=== PATIENT | male | born 1955 | race Caucasian/White ===

== ENCOUNTER 2018-02-18 17:10 | Inpatient (IN) | payer BC ==
--- NOTE | 2018-02-18 18:56 | PDOC.FPRHP ---
- History of Present Illness Chief Complaint: abdominal pain History of Present Illness: Mr. Jerez presents as a transfer from [place] [facility] for abdominal pain and acute kidney injury. He and Dr. Montoya have been working up his abdominal pain outpatient, suspecting some sort of gall bladder pathology. He complains of lower abdominal pain that radiates to his RUQ at times, especially with fried food. The pain comes and goes with nothing making it better or worse. He does have associated N/V and alternating diarrhea and constipation. He has not had anything like this before and has no sick contacts. In the past two weeks he has stopped taking celebrex, but continues to take ibuprofen for his pain. ED Course: arrived to ED in pain, pain has now resolved. ED work up: CBC, CMP, BNP, UA, CK , CXR, CT-ab/pelvis - Allergies/Adverse Reactions Allergies Allergy/AdvReac Type Severity Reaction Status Date / Time No Known Allergies Allergy Unverified 05/21/16 21:25 - Home Medications Medication Instructions Recorded Confirmed Type Furosemide [Lasix] 40 mg PO DAILY 05/21/16 02/18/18 History Potassium Chloride 20 meq PO DAILY 05/21/16 02/18/18 History Warfarin Sodium [Coumadin] 7.5 mg PO DAILY 05/21/16 02/18/18 History Celecoxib [Celebrex] 200 mg PO DAILY 02/18/18 02/18/18 History Ibuprofen 400 mg PO DAILY PRN 02/18/18 02/18/18 History Lisinopril 10 mg PO DAILY 02/18/18 02/18/18 History - History PMHx: Factor V leiden deficiency, anemia-transfused 4 units, dependent edema PSHx: abdominal hernia repair FHx:none Social:none - Review of Systems General: reports: weight/appetite/sleep changes (intentional 20lb weight loss over 5 months). denies: fever/chills Eyes: denies: vision changes ENT: denies: nasal congestion, rhinorrhea Respiratory: denies: cough, congestion, shortness of breath Cardiovascular: reports: edema (better than baseline). denies: chest pain, palpitation Gastrointestinal: reports: nausea, vomiting, diarrhea, constipation, abdominal pain. denies: GI bleeding Genitourinary: denies: incontinence, dysuria Skin: denies: rashes, lesions Musculoskeletal: denies: pain, tenderness, stiffness, arthritis/arthralgias Neurological: denies: numbness, weakness - Vital signs BP: [135/69] HR: [94] RR: [20] Tmax: [98.5] Pox: [96]% on [RA] Wt: [154.22kg] - Physical Exam Constitutional: NAD, awake, alert and oriented HEENT: normocephalic and atraumatic, no scleral icterus, grossly normal vision, other (poor dentation) Neck: supple, trachea midline, no LAD Chest: no-tender to palpation, no lesions Heart: RRR, normal S1/S2, no murmurs/rubs/gallops, pulses present, other ( significant edema in b/l LE) Lungs: CTAB, no respiratory distress, good air movement, no rales/rhonchi Abdomen: bowel sounds present, other (guarding throughout, tenderness in lower quadrants, scar from midline hernia repair) Musculoskeletal: normal structure, normal tone, ROM grossly normal Neurological: no focal deficit, normal sensation Skin: no rash/lesions, good turgor Heme/Lymphatic: no unusual bruising or bleeding, no purpura, no petechia Psychiatric: normal mood and affect FMR H&P: Results - Labs Lab results: Creatine Kinase 51 U/L (30-200) 02/18/18 18:14 B-Natriuretic Peptide Less than 10.0 pg/mL (0-100) 02/18/18 18:14 FMR H&P: A/P - Problem List (1) Acute kidney injury Current Visit: Yes Status: Acute Code(s): N17.9 - ACUTE KIDNEY FAILURE, UNSPECIFIED (2) Cholelithiases Current Visit: Yes Status: Acute Code(s): K80.20 - CALCULUS OF GALLBLADDER W /O CHOLECYSTITIS W/O OBSTRUCTION (3) Factor 5 Leiden mutation, heterozygous Current Visit: Yes Status: Acute Code(s): D68.51 - ACTIVATED PROTEIN C RESISTANCE (4) Dependent edema Current Visit: Yes Status: Acute Code(s): R60.9 - EDEMA, UNSPECIFIED - Plan 1. SEFERINO - intrinsic renal disease : iatrogenic vs ischemic - BUN/CR elevated: 30/2.83 (ratio 10:1) - IVF: 1L LR fluid bolus, 150ml/hr LR - Renal US with doppler, mag, phos, urine ur and cr, UA with micro, uric acid, BNP - Close IandO, bladder scan - Hold lasix, NSAIDS, lisinopril - repeat CBC CMP in AM, monitor closely 2. Cholelithiasis - gall stone on CT abdomen - lab values wnl - order US gall bladder - pending results: GI consult, HIDA scan 3. Factor V leiden deficiency - continue home dose warfarin - monitor INR 4. Dependent edema - hold lasix - no open wounds at this time, continue to monitor Dispo: continue workup for cause of SEFERINO and possible gall bladder disease, repeat labs in AM FMR H&P: Upper Level - Pertinent history 62 yo WM PMH Factor V Leiden deficiency on chronic warfarin and remote history of acute blood loss anemia. Presents as transfer from [place] ER with CC of abdominal pain for 1 week that has acutely worsened. States he was recently started on lisinopril roughly 1 month ago. He states he has been taking meloxicam for several years but recently quit taking in 2 weeks ago. He also takes 2 ibuprofen in the morning for additional pain relief 3-4 days per week. ER: [place]: Labs, CXR, CT-abdomen/pelvis w/o contrast, Zosyn, NS 2L. Can: BNP and trop drawn. - Pertinent findings Vitals: WNL GEN: NAD ENT:dry mm. poor dentition CV: RRR, no murmur Lung: CTA-B, normal effort Abd: diffuse TTP in LUQ, RUQ, and RLQ, BS x4. Labs: Na 133, BUN 30, Cr 2.83 (2x baseline), INR 3.2 Imaging: CXR: cardiomegaly, hyperinflation, CT-abdomen/pelvis w/o contrast: Probably small gallstone, fatty changes of pancreas - Plan Date/Time: 02/18/181852 I, Fausto Levy MD, have evaluated this patient and agree with findings/plan as outlined by internet marketing consultant resident. Pertinent changes/additions are listed here. 1. Acute kidney injury: likely 2/2 volume depletion. Will order UA, urine urea and creatinine, uric acid, mag/phos, and repeat BMP to better describe nature of his kidney injury. Will order renal US with arterial and venous doppler. Bolus LR 1L and start at 150 mL/hr and reassess tomorrow morning. Cr has been trending up for past month. Depending on response of Cr to IV fluids, may need evaluation by nephrology inpatient vs outpatient. Strict I&O. If no urine output after 3 L fluids, will bladder scan and consider straight cath. Hold lisniopril, lasix, and NSAIDS 2. Cholelithiasis: RUQ US and consult Gen surgery tomorrow morning. NPO @ midnight. 3. Factor V Leiden deficiency: Continue warfarin, monitor INR while in hospital and adjust warfarin accordingly 4. Recent intentional weight loss 5. Dependent edema: Hold lasix. 6. Stasis dermatitis: monitor 7. HTN: hold lisinopril and lasix, PRN hydralazine available 8. Diet: NPO @ 0000, HH until then 9. PPx: warfarin 10. CODE: FULL Dispo: Inpatient, medical, >[address] Rahman.
[2018-02-18] MEDS ORDERED: Acetaminophen 325 MG TAB PO PRN (21:17)
[2018-02-18] MEDS ORDERED: Ondansetron ODT 4 MG TAB PO PRN (21:17)
[2018-02-18 21:31] VITALS: BMI 44.8
[2018-02-18] MEDS ORDERED: Lactated Ringer's 1,000 ML IV SCH (21:40)
[2018-02-18 22:24] LABS: Anion Gap 14 mmol/L (10-20); BUN (Urea Nitrogen) 29 mg/dL (8.4-25.7); Calc. Creatinine Clearance 67 mL/min (70-130); Calcium 9.1 mg/dL (7.8-10.44); Carbon Dioxide 20 mmol/L (23-31); Chloride 106 mmol/L (98-107); Estimated GFR-MDRD 27; Glucose 111 mg/dL (80-115); Magnesium 2.2 mg/dL (1.6-2.6); Phosphorus 3.6 mg/dL (2.3-4.7); Potassium 4.5 mmol/L (3.5-5.1); Sodium 135 mmol/L (136-145); Uric Acid 7.1 mg/dL (3.5-7.2)
[2018-02-18] MEDS: Lactated Ringer's 1,000 ML IV SCH (22:32)
[2018-02-18 23:04] LABS: Creatinine, Urine 196.31 mg/dL (63-166)
[2018-02-19] MEDS: Lactated Ringer's 1,000 ML IV SCH ×5 (03:24→21:17)
[2018-02-19 04:56] LABS: INR-International Normal Ratio 3.5; Prothrombin Time 34.7 SEC (12.0-14.7)
[2018-02-19 05:03] LABS: ALT (SGPT) 13 U/L (8-55); AST (SGOT) 16 U/L (5-34); Albumin 3.5 g/dL (3.4-4.8); Alkaline Phosphatase 64 U/L (40-150); Anion Gap 13 mmol/L (10-20); BUN (Urea Nitrogen) 28 mg/dL (8.4-25.7); Bilirubin, Total 0.3 mg/dL (0.2-1.2); Calc. Creatinine Clearance 86 mL/min (70-130); Carbon Dioxide 18 mmol/L (23-31); Chloride 109 mmol/L (98-107); Estimated GFR-MDRD 36; Globulin 2.9 g/dL (2.4-3.5); Glucose 95 mg/dL (80-115); Potassium 4.6 mmol/L (3.5-5.1); Protein, Total 6.4 g/dL (5.8-8.1); Sodium 135 mmol/L (136-145)
[2018-02-19 05:08] LABS: Band 2 % (5-11); Eosinophils 2 % (0-10); Hemoglobin 11.3 g/dL (14.0-18.0); Hypochromia SLIGHT = 6-15 cells (100X) (0-5/hpf); Lymphocytes 24 % (21-51); MDiff Complete? YES; Mean Corpuscular Hemoglobin 29.6 pg (27.0-31.0); Mean Corpuscular Volume 92.5 fL (78.0-98.0); Monocytes 6 % (0-10); Neutrophil 66 % (42-75); PLT Morphology Comment Appears Adequate; Platelet Count 245 thou/uL (130-400); RBC Distribution Width 13.1 % (11.5-14.5); Red Blood Cell (RBC) Count 3.81 mill/uL (4.70-6.10); White Blood Cell (WBC) Count 6.3 thou/uL (4.8-10.8)
--- NOTE | 2018-02-19 06:28 | PDOC.FM ---
- Subjective Subjective: Pt. states he did well overnight. He says his pain went from a 4 to a 2 out of ten. He states that he has not felt this good in the last 4 weeks. Pt. states that he has been urinating multiple times over night. He denies chest pain, trouble breathing, nausea, and vomiting. He did state that he has had diarrhea. We discussed the plan for him today and pt. had no questions at this time. - Objective MAR Reviewed: Yes Vital Signs & Weight: Vital Signs (12 hours) Temp Pulse Resp BP BP Pulse Ox 02/19/18 00:35 98.2 F 78 20 139/82 20 L 02/18/18 23:06 97.6 F 105 H 18 103/70 95 02/18/18 22:54 97.6 F 105 H 18 96 02/18/18 22:50 18 Weight Weight 153.995 kg Result Diagrams: 02/19/18 03:32 02/19/18 03:32 <Sukhdeep Rodriguez - Last Filed: 02/19/18 08:25> - Objective Vital Signs & Weight: Vital Signs (12 hours) Temp Pulse Resp BP Pulse Ox 02/19/18 11:50 98.3 F 74 20 117/74 94 L 02/19/18 07:54 98.2 F 87 16 145/84 H 94 L 02/19/18 00:35 98.2 F 78 20 139/82 20 L Weight Weight 153.995 kg Result Diagrams: 02/19/18 03:32 02/19/18 03:32 <Armando Miguel - Last Filed: 02/19/18 12:01> Phys Exam - Physical Examination Constitutional: NAD HEENT: PERRLA, moist MMs Neck: supple, full ROM Respiratory: no wheezing, clear to auscultation bilateral Cardiovascular: RRR, no significant murmur Gastrointestinal: positive bowel sounds Pt. has diffuse involuntary guarding Pain to palpation in LUQ and RUQ, no rebound tenderness Musculoskeletal: edema present (Unable to palpate pulses, likely 2/2 edema) Neurological: normal sensation, moves all 4 limbs Psychiatric: normal affect, A&O x 3 Skin: no rash, cap refill <2 seconds <Sukhdeep Rodriguez - Last Filed: 02/19/18 08:25> Dx/Plan (1) Acute kidney injury Code(s): N17.9 - ACUTE KIDNEY FAILURE, UNSPECIFIED Status: Acute (2) Cholelithiases Code(s): K80.20 - CALCULUS OF GALLBLADDER W/O CHOLECYSTITIS W/O OBSTRUCTION Status: Acute (3) Dependent edema Code(s): R60.9 - EDEMA, UNSPECIFIED Status: Acute (4) Factor 5 Leiden mutation, heterozygous Code(s): D68.51 - ACTIVATED PROTEIN C RESISTANCE Status: Acute (5) Anemia Code(s): D64.9 - ANEMIA, UNSPECIFIED Status: Acute - Plan Plan: This is a 62 yo male with a PMH of Factor V leiden deficiency, anemia, dependent edema SEFERINO -IVF: LR bolus, followed by 150ml/hr -Renal US, mag, phos, UA with micro, uric acid, BNP -Strict I&Os -Hold lasix and NSAIDs and lisinopril -Repeat AM labs Cholelithiasis -Consult GI -Gall badder US shows cholelithiasis, sludge, but no sign of cholecystitis Factor V leiden deficieicny Dependent edema -holding lasix for fluid resuscitation Hepatic steatosis -LFT, Bili, and albumin stable -Monitor labs <Sukhdeep Rodriguez - Last Filed: 02/19/18 08:25> Attending Addendum - Attending Addendum Date/Time: 02/19/18 1154 I personally evaluated the patient and discussed the management with Dr. Rodriguez. I agree with the History, Examination, Assessment and Plan documented above with any addition or exceptions noted below. Patient feeling improved today. Continues to have some mild abdominal pain. His renal function has improved, and imaging and labs consistent with pre-renal etiology. Continue mild fluid hydration. Will see if he tolerates diet before determining further mgmt of his cholelithiasis. If he is tolerating diet, can consider further outpatient workup. Patient at risk for gastritis and/or PUD and therefore we should explore those possibilities if he does not tolerate diet today. Awaiting final report of his imaging studies. <Armando Miguel - Last Filed: 02/19/18 12:01>
[2018-02-19 07:53] LABS: Bilirubin Negative (Negative); Blood, Urine Trace (Negative); Clarity CLEAR (Clear); Glucose, Urine (Dipstick) Negative (Negative); Leukocyte Negative (Negative); Nitrite Negative (Negative); Protein, Urine (Dipstick) Negative (Neg-Trace); Specific Gravity, Urine 1.018 (1.002-1.036); Urobilinogen 0.2 mg/dL (0.2-1.0)
[2018-02-19 07:56] LABS: Bacteria/HPF None Seen HPF (None Seen); Hyaline Casts/LPF 0-3 HYALINE CAST LPF (0-3 Hyaline); Pathc Cast-AUWi Flag 0.58 (0-2.49); RBC/HPF 0-3 HPF (0-3); Squamous Epithelial 0-3 HPF (0-3); WBC/HPF 0-3 HPF (0-3)
--- NOTE | 2018-02-19 08:47 | ULT ---
RENAL DOPPLER EVALUATION WITH SPECTRAL ANALYSIS AND COLOR FLOW EVALUATION: Date: 02/19/18 HISTORY: Renal hypertension. COMPARISON: Abdominal ultrasound on 02/18/18. FINDINGS: Kidneys were imaged on prior exam. This examination was performed as a renal artery Doppler examinati on. There is arterial flow demonstrated within the main right renal artery with peak systolic velocity of 41.1 cm/second. Peak systolic velocity in the abdominal aorta is 40.3 cm/second. Right renal artery: aorta ratio of 1.02 is obtained. Resistive index in arcuate artery on the right is 0.57, with normal being less than 0.7. Doppler evaluation, as well as color flow evaluation, were unable to detect arterial flow within the main left renal artery. However, this is likely artefactual as opposed to stenosis or occlusion. Margarita rial Doppler evaluation of the intrarenal vessels, including arcuate arteries, does demonstrate flow. However, given that there is nonvisualization of left renal artery, renal artery:aorta ratio is unab le to be obtained. Resistive index in left renal arcuate artery is 0.57. IMPRESSION: 1. Very limited examination. Given the limited evaluation of the renal arteries, CTA versus MRA is r ecommended for further evaluation of renal artery stenosis. 2. Normal resistive indices are obtained in arcuate arteries bilaterally. 3. Normal renal artery:aorta ratio on the right. POS: [facility]
[2018-02-20] MEDS: Lactated Ringer's 1,000 ML IV SCH (05:17)
--- NOTE | 2018-02-20 06:10 | PDOC.FM ---
- Subjective Subjective: Pt. states that he did well overnight and tolerated his regular diet. Pt. states that his pain is down to a 2/10 in the LLQ. No chest pain, SOB, nausea or vomiting. - Objective MAR Reviewed: Yes Vital Signs & Weight: Vital Signs (12 hours) Temp Pulse Resp BP Pulse Ox 02/19/18 20:00 98.7 F 71 18 131/84 92 L Weight Admit Weight 153.995 kg Weight 153.995 kg I&O: 02/18/18 02/19/18 02/20/18 06:59 06:59 06:59 Intake Total 4844 Balance 4844 Result Diagrams: 02/19/18 03:32 02/19/18 03:32 <Sukhdeep Rodriguez - Last Filed: 02/20/18 08:23> - Objective Vital Signs & Weight: Vital Signs (12 hours) Temp Pulse Resp BP Pulse Ox 02/20/18 08:29 97.9 F 66 16 153/77 H 92 L Weight Admit Weight 153.995 kg Weight 153.995 kg I&O: 02/19/18 02/20/18 02/21/18 06:59 06:59 06:59 Intake Total 4844 Balance 4844 Result Diagrams: 02/19/18 03:32 02/20/18 08:57 <Armando Miguel - Last Filed: 02/20/18 12:02> Phys Exam - Physical Examination Constitutional: NAD HEENT: PERRLA, moist MMs Neck: supple, full ROM Respiratory: no wheezing, clear to auscultation bilateral Cardiovascular: RRR, no significant murmur Gastrointestinal: soft, no distention, positive bowel sounds mild pain to palpation of LLQ and RUQ Musculoskeletal: pulses present Neurological: non-focal, normal sensation, moves all 4 limbs Psychiatric: normal affect, A&O x 3 Skin: no rash, normal turgor <Sukhdeep Rodriguez - Last Filed: 02/20/18 08:23> Dx/Plan (1) Acute kidney injury Code(s): N17.9 - ACUTE KIDNEY FAILURE, UNSPECIFIED Status: Acute (2) Cholelithiases Code(s): K80.20 - CALCULUS OF GALLBLADDER W/O CHOLECYSTITIS W/O OBSTRUCTION Status: Acute (3) Dependent edema Code(s): R60.9 - EDEMA, UNSPECIFIED Status: Acute (4) Factor 5 Leiden mutation, heterozygous Code(s): D68.51 - ACTIVATED PROTEIN C RESISTANCE Status: Acute (5) Anemia Code(s): D64.9 - ANEMIA, UNSPECIFIED Status: Acute - Plan Plan: This is a 62 yo male with a PMH of Factor Vleiden deficiency, anemia, dependent edema SEFERINO -IVF: LR 150ml/hr -Hold lasix, NSAIDs, lisinopril Cholelithiasis -Plan on consulting GI in outpatient setting -Gallstones and sludge w/o evidence of cholecystitis -Dr. Montoya was given courtesy call yesterday afternoon -Pt. was given trial of regular diet, if tolerated well overnight, pt. will be discharged home today Factor V leiden dificiency -Restart warfarin Dependen edema -Holding lasix for fluid resusitation Hepatic steatosis -Stable LFTs Disposition: Home today <Sukhdeep Rodriguez - Last Filed: 02/20/18 08:23> Attending Addendum - Attending Addendum Date/Time: 02/20/18 1201 I personally evaluated the patient and discussed the management with Dr. Rodriguez. I agree with the History, Examination, Assessment and Plan documented above with any addition or exceptions noted below. SEFERINO improved with hydration and all labs and imaging point to pre-renal etiology likely worsened by his NSAID use. Abdominal pain is cholelithiasis versus gastritis but he is able to tolerate a normal diet well. Will discharge on carafate and early follow up with PCP to evaluate for surgery referral for potential gallbladder removal. Stable for discharge at this time. <Armando Miguel - Last Filed: 02/20/18 12:02>
[2018-02-20 09:38] LABS: ALT (SGPT) 16 U/L (8-55); AST (SGOT) 18 U/L (5-34); Albumin 3.7 g/dL (3.4-4.8); Alkaline Phosphatase 65 U/L (40-150); Anion Gap 9 mmol/L (10-20); BUN (Urea Nitrogen) 18 mg/dL (8.4-25.7); Bilirubin, Total 0.3 mg/dL (0.2-1.2); Calc. Creatinine Clearance 132 mL/min (70-130); Calcium 9.3 mg/dL (7.8-10.44); Carbon Dioxide 27 mmol/L (23-31); Chloride 105 mmol/L (98-107); Estimated GFR-MDRD 58; Globulin 3.3 g/dL (2.4-3.5); Glucose 103 mg/dL (80-115); Potassium 4.1 mmol/L (3.5-5.1); Sodium 137 mmol/L (136-145)
[2018-02-20 12:12] VITALS: BP 112/72; TEMP 98.4
--- NOTE | 2018-02-21 04:38 | DIS-2 ---
DATE OF ADMISSION: 02/18/2018 DATE OF DISCHARGE: 02/20/2018 RESIDENT: Dr. Sukhdeep Rodriguez. ADMITTING ATTENDING: Dr. Rahman. DISCHARGE ATTENDING: Dr. Miguel. CONSULTATIONS: None. PROCEDURES: Abdominal ultrasound, gallbladder showed cholelithiasis and biliary sludge with no signs of cholecystitis also showed hepatic steatosis. Patient also had ultrasound of the bladder. The ki dneys showed possible cyst in the right renal pelvis. No evidence of hydronephrosis. Patient also g ot an abdominal pelvic Doppler, which showed a little evaluation of the left renal artery secondary t o artifact likely due to body habitus. There was outflow from the left kidney. Right kidney had goo d arterial blood flow. PRIMARY DIAGNOSES: Acute kidney injury, cholelithiasis. SECONDARY DIAGNOSIS: Factor V Leiden deficiency. DISCHARGE MEDICATIONS: Carafate 1 gram p.o. t.i.d. p.r.n. DISCONTINUED MEDICATIONS: NSAIDs and Celebrex are the only two discontinued medications. HISTORY OF PRESENT ILLNESS AND HOSPITAL COURSE: This is a 62-year-old male who presented to the ER, the night of the with abdominal pain. Patient received an ultrasound showing cholelithiasis as well as sludge. No symptoms or signs of cholecystitis. Labs also showed BUN of 29, creatinine of 2. 45. FE urea indicate prerenal causes. Patient underwent fluid resuscitation as well as n.p.o. Cur rently at this time, kidneys recovered with a creatinine of 1.25 on discharge. Patient also tolerate d regular diet on day of discharge. During this time, the warfarin was discontinued due to thought o f surgery consult and surgery. Warfarin was restarted upon day of discharge, patient was instructed to follow up with Dr. Montoya, PCP on Friday if possible. DISPOSITION: Stable. DISCHARGE INSTRUCTIONS: 1. Location: Home. 2. Diet: Regular. 3. Activity: As tolerated. 4. Follow up with Dr. Montoya, next week.
== END 2018-02-20 14:56 | disposition home or self-care (01) | DRG 683 ==
LOC: ERS 17:10 → T4-A 21:07
PROVIDERS: ADMIT Student in an Organized Health Care Education/Training Program; ATTEND Student in an Organized Health Care Education/Training Program
DX: N17.9 Acute kidney failure, unspecified (principal); D68.51 Activated protein C resistance; K80.20 Calculus of gallbladder without cholecystitis without obstruction; K76.0 Fatty (change of) liver, not elsewhere classified; N28.1 Cyst of kidney, acquired; R60.9 Edema, unspecified; D64.9 Anemia, unspecified; M19.90 Unspecified osteoarthritis, unspecified site; J42 Unspecified chronic bronchitis; I87.2 Venous insufficiency (chronic) (peripheral); I10 Essential (primary) hypertension
CPT/HCPCS: 36415; 76700; 76856; 80053; 81001; 82570; 83735; 83880; 84100; 84540; 84550; 85007; 85027; 99285; J7120

== ENCOUNTER 2018-04-23 22:04 | Inpatient (IN) | payer BC ==
[2018-04-24 00:07] LABS: PTT 246.2 SEC (22.9-36.1)
[2018-04-24 00:08] LABS: Prothrombin Time Greater than 150.0 SEC (12.0-14.7)
[2018-04-24] MEDS ORDERED: Phytonadione 5 MG in Sodium Chloride 0.9% 50 ML IVPB SCH (01:00)
[2018-04-24] MEDS ORDERED: Ondansetron ODT 4 MG TAB PO PRN ×2 (02:19→05:34)
[2018-04-24] MEDS ORDERED: HYDROcodone/Acetaminophen 10/325 mg Tablet PO PRN (02:19)
--- NOTE | 2018-04-24 02:27 | PDOC.FPRHP ---
- History of Present Illness Chief Complaint: hematuria History of Present Illness: This is a 62 yo M here for CC of hematuria. The patient has a PMH significant for Factor V Leiden, DVT, recent colon cancer s/p colectomy this month. He has been on coumadin since when he had his DVT. The patient states he has had hematuria for the past 2 days. States his urine is red tinged but denies any blood clots. Endorses mild suprapubic pain that is 2/10 and dull. The patient endorses feeling light headed intermittently over the past 2 days that is worse with walking. States he has also had intermittent cold sweats over the last 2 days. He has also had vomiting X1 that was clear. Patient denies fever, SOB, chest pain, diarrhea or LE swelling. ED Course: Vit K and FFP - Allergies/Adverse Reactions Allergies Allergy/AdvReac Type Severity Reaction Status Date / Time cortisone Allergy Mild Rash Verified 04/24/18 05:10 - Home Medications Medication Instructions Recorded Confirmed Type Furosemide [Lasix] 40 mg PO DAILY 05/21/16 04/24/18 History Warfarin Sodium [Coumadin] 7.5 mg PO DAILY 05/21/16 04/24/18 History Lisinopril 10 mg PO DAILY 02/18/18 04/24/18 History Potassium Chloride [K-Dur] 40 meq PO DAILY 03/21/18 04/24/18 History Warfarin Sodium [Coumadin] 3.75 mg PO ASDIR 04/24/18 04/24/18 History - History PMHx: colon cancer, HTN, OA, bronchitis, DVT, PVD, Factor V Leiden PSHx: colectomy (04/14), cholecystectomy, pilonidal cyst removal FHx: non contributory Social: denies alcohol or drug use, former tobacco user - quit > 10 years ago - Review of Systems General: reports: fever/chills (chills), night sweats (cold sweats). denies: weight/appetite/sleep changes Eyes: denies: eye pain, vision changes ENT: denies: nasal congestion, rhinorrhea Respiratory: reports: cough. denies: congestion, shortness of breath Cardiovascular: denies: chest pain, palpitation, edema Gastrointestinal: reports: vomiting, abdominal pain (suprapubic). denies: nausea, diarrhea, constipation Skin: denies: rashes, lesions Musculoskeletal: denies: pain, tenderness, stiffness Neurological: reports: weakness (lightheadedness). denies: syncope Psychological: denies: anxiety, depression - Vital signs BP: 112/91 HR: 117 RR: 97 Tmax: 98.8F Pox: 97% on RA Wt: 140.6kg - Physical Exam Constitutional: NAD, awake, alert and oriented HEENT: normocephalic and atraumatic, EOMI, grossly normal vision -HEENT: diminished hearing Chest: no-tender to palpation, no lesions Heart: RRR, normal S1/S2, no murmurs/rubs/gallops, pulses present Lungs: CTAB, no respiratory distress, good air movement, no wheezing Abdomen: soft, bowel sounds present -Abdomen: TTP suprapubic, midline verticle incision, wound vac in place Musculoskeletal: normal tone, ROM grossly normal Neurological: no focal deficit, CN II-XII intact Skin: good turgor, no jaundice -Skin: venous stasis changes bilaterally Psychiatric: normal mood and affect, good judgment and insight FMR H&P: A/P - Problem List (1) Hypertension Current Visit: Yes Status: Acute Code(s): I10 - ESSENTIAL (PRIMARY) HYPERTENSION (2) Coumadin toxicity Current Visit: Yes Status: Acute Code(s): T45.511A - POISONING BY ANTICOAGULANTS, ACCIDENTAL, INIT (3) Hematuria Current Visit: Yes Status: Acute Code(s): R31.9 - HEMATURIA, UNSPECIFIED (4) Adenocarcinoma Current Visit: No Status: Acute Code(s): C80.1 - MALIGNANT (PRIMARY) NEOPLASM, UNSPECIFIED (5) Factor 5 Leiden mutation, heterozygous Current Visit: No Status: Acute Code(s): D68.51 - ACTIVATED PROTEIN C RESISTANCE (6) S/P right hemicolectomy Current Visit: No Status: Acute Code(s): Z90.49 - ACQUIRED ABSENCE OF OTHER SPECIFIED PARTS OF DIGESTIVE TRACT - Plan This is a 62 yo M here for work up of hematuria found to have elevated INR. Hematuria - likely 2/2 to coumadin toxicity - CT abdomen/pelvis one month ago showed cysts on bilateral kidneys - INR: too high to detec, PT>150, PTT 246 - UA pending - Will hold coumadin and ASA - Pt given vit K and FFP in the ED - Will continue to work to get INR in th range - Will recheck INR in AM Colon Cancer s/p colectomy - aware, will monitor VS - incision clean dry and intact; will continue to monitor - Wound vac in place Factor V leiden - pt on chronic coumadin due to this condition; holding for now - See problem 1 for plan HTN - aware, will restart home meds CODE: FULL DISPO: get INR in range and reassess for hematuria Case discussed with Dr. Palm FMR H&P: Upper Level - Pertinent history 62 yo male here as a transfer from [place] for abnormal coags. He has hx of Factor V leiden and has chronically been on coumadin for previous DVT in the 90s. He had been feeling lightheaded for the past few days with associated blood in the urine. One espisode of non-bloody emesis. He went to the [place] ER where was found to have INR too high to count, PT/PTT were similarly elevated. Hemoglobin is 11.3 which is normal range for him. Denies fever, SOB, CP. Pertinent recent history also includes ex lap with right hemicolectomy and he has a wound vac in place. - Pertinent findings 155/97 HR: 121 Temp: 98.1 SO2: 97% on RA RR: 19 GEN: NAD, AOx3 CARD: tachy, regular rhythm, no m/g/r PULM: CTAB, exam limited by body habitus ABD: BSx4, wound vac in place with no signs of infection EXT: chronic skin changes to right lower leg below the mid-james; gross motor and sensation intact of lower extremities with no tenderness to palpation PT: 150 PTT: 246 INR: TNP H.3 - Plan Date/Time: 04/24/18 6985 IJimi DO, have evaluated this patient and agree with findings/plan as outlined by spring intern resident. Pertinent changes/additions are listed here. coumadin toxicity hold coumadin recheck coags in the morning patient received 5 vitK and 2 FFP in the ER monitor for bleeding hypokalemia replace monitor with AM labs s/p right hemicolectomy colon cancer Factor V Leiden HTN Morbid obesity continue home meds Attending Addendum - Attending Addendum Date/Time: 04/24/18 1026 I personally evaluated the patient and discussed the management with Dr. Sena. I agree with the History, Examination, Assessment and Plan documented above with any addition or exceptions noted below. The patient presents to [place] ER with hematuria. He was found to have supratherapeutic INR which too high for the lab to calculate. He has been given vitamin K and FFP. Will recheck INR. Pt admits that he never followed up with Dr. Montoya to have his INR checked. Pt jailynll has wound vac in place on abdomen. Will consult wound care.
[2018-04-24] MEDS ORDERED: Ondansetron HCl/PF 4 MG/2 ML Vial IVP PRN (05:34)
[2018-04-24] MEDS ORDERED: Acetaminophen 325 MG TAB PO PRN (05:34)
[2018-04-24] MEDS: Lisinopril 10 MG TAB PO SCH (08:14)
[2018-04-24] MEDS: Furosemide 40 MG TAB PO SCH (08:15)
[2018-04-24] MEDS: Potassium Chloride 20 MEQ TAB PO SCH (08:15)
[2018-04-24 11:22] LABS: Bilirubin Large (Negative); Blood, Urine Large (Negative); Clarity CLOUDY (Clear); Glucose, Urine (Dipstick) Negative (Negative); Leukocyte Small (Negative); Nitrite Negative (Negative); Protein, Urine (Dipstick) 100 mg/dL (Neg-Trace); Specific Gravity, Urine 1.024 (1.002-1.036)
[2018-04-24 11:24] LABS: Bacteria/HPF None Seen HPF (None Seen); Hyaline Casts/LPF 4-6 HYALINE CAST LPF (0-3 Hyaline); Pathc Cast-AUWi Flag 1.17 (0-2.49); RBC/HPF GREATER THAN 50-TNTC HPF (0-3); Squamous Epithelial 0-3 HPF (0-3)
[2018-04-24 11:26] LABS: Renal Epithelial None Seen HPF (0-3); Transitional Epithelial NONE SEEN HPF (0-3)
--- NOTE | 2018-04-24 13:33 | PDOC.EVN ---
Event Note - Event Note Event Note: Pt. has hematuria, suprapubic pain and a UA positive for WBC and leukocyte esterase. We are getting a urine culture and starting pt. on 1g rocephin q24hr.
[2018-04-24] MEDS: cefTRIAXone\\ROCEPHIN 1 GM in Sodium Chloride 0.9% 100 ML IVPB SCH (13:57)
[2018-04-24 15:19] VITALS: BMI 39.5
[2018-04-25 05:10] LABS: #Eosinphils 0.3 thou/uL (0.0-0.7); #Monocytes 0.5 thou/uL (0.11-0.59); #Neutrophils 5.4 thou/uL (1.40-6.50); %Basophils 0.5 % (0.0-1.0); %Lymphocytes 13.6 % (21.0-51.0); %Monocytes 7.3 % (0.0-10.0); %Neutrophils 74.7 % (42.0-75.0); Mean Corpuscular HGB CONC 31.1 g/dL (32.0-36.0); Mean Corpuscular Hemoglobin 27.8 pg (27.0-31.0); Mean Corpuscular Volume 89.4 fL (78.0-98.0); Mean Platelet Volume 7.1 fL (7.4-10.4); Platelet Count 324 thou/uL (130-400); RBC Distribution Width 15.8 % (11.5-14.5); Red Blood Cell (RBC) Count 3.59 mill/uL (4.70-6.10); White Blood Cell (WBC) Count 7.2 thou/uL (4.8-10.8)
[2018-04-25 05:26] LABS: INR-International Normal Ratio 1.3; PTT 37.6 SEC (22.9-36.1); Prothrombin Time 16.1 SEC (12.0-14.7)
[2018-04-25 05:27] LABS: Anion Gap 16 mmol/L (10-20); BUN (Urea Nitrogen) 7 mg/dL (8.4-25.7); Calc. Creatinine Clearance 137 mL/min (70-130); Carbon Dioxide 24 mmol/L (23-31); Chloride 99 mmol/L (98-107); Estimated GFR-MDRD 71; Glucose 99 mg/dL (80-115); Magnesium 1.7 mg/dL (1.6-2.6); Phosphorus 2.6 mg/dL (2.3-4.7); Potassium 3.3 mmol/L (3.5-5.1); Sodium 136 mmol/L (136-145)
--- NOTE | 2018-04-25 06:17 | PDOC.FM ---
- Subjective Subjective: Pt states he is doing well however he reports his abdomen has been hurting some. He denies N/V and had a BM yesterday. He denies any blood in his BM. He denies SOB, CP, or leg pain. - Objective MAR Reviewed: Yes Vital Signs & Weight: Vital Signs (12 hours) Temp Pulse Resp BP Pulse Ox 04/24/18 19:47 97.4 F L 88 18 125/79 95 04/24/18 19:33 95 Weight Admit Weight 136.078 kg Weight 136.078 kg I&O: 04/23/18 04/24/18 04/25/18 06:59 06:59 06:59 Intake Total 100 Balance 100 Result Diagrams: 04/25/18 04:47 04/25/18 04:47 <Sukhdeep Rodriguez - Last Filed: 04/25/18 09:56> - Objective Vital Signs & Weight: Vital Signs (12 hours) Temp Pulse Resp BP BP Pulse Ox 04/25/18 12:16 98.4 F 82 18 101/67 96 04/25/18 08:47 115/76 04/25/18 08:00 98.3 F 72 18 113/74 96 Weight Admit Weight 136.078 kg Weight 136.078 kg I&O: 04/24/18 04/25/18 04/26/18 06:59 06:59 06:59 Intake Total 580 Balance 580 Result Diagrams: 04/25/18 04:47 04/25/18 04:47 <Johana Palm - Last Filed: 04/25/18 15:39> Phys Exam - Physical Examination Constitutional: NAD HEENT: moist MMs Neck: no JVD Respiratory: no wheezing, clear to auscultation bilateral Cardiovascular: RRR, no significant murmur Gastrointestinal: soft midline wound healing well, diffuse tenderness to palpation No rebound tenderness Musculoskeletal: edema present Neurological: moves all 4 limbs Psychiatric: A&O x 3 <Sukhdeep Rodriguez - Last Filed: 04/25/18 09:56> Dx/Plan (1) Coumadin toxicity Code(s): T45.511A - POISONING BY ANTICOAGULANTS, ACCIDENTAL, INIT Status: Acute (2) Hematuria Code(s): R31.9 - HEMATURIA, UNSPECIFIED Status: Acute (3) Colonic mass Code(s): K63.9 - DISEASE OF INTESTINE, UNSPECIFIED Status: Acute (4) Factor 5 Leiden mutation, heterozygous Code(s): D68.51 - ACTIVATED PROTEIN C RESISTANCE Status: Acute - Plan Plan: This is a 62 yo mal with a PMH of factor V leiden deficiency, HTN, colon cancer s/p colectomy Hematuria -Pt. had supratherapeutic INR, secondary to coumadin toxicity, on admission with the presence of hematuria. CT adbomen a month ago shows cysts bilaterally on kidneys. INR this morning after vitamin K was 1.3. UA yesterday was positive for LE and WBCs and therefore we started pt. on Rocephin 1 gram. We are pending urine culture. We will restart pt's warfarin at 5 mg daily and attempt to contact pt's PCP. Colon cancer s/p colectomy -Aware, no signs of GI bleeding. Incision is clean and wound vac is in place. Due to pt's new abdominal pain, we are obtaining a KUB looking for dilated bowel or free air. Factor V leiden deficiency -Pt. normally on coumadin due to this condition, we are restarting pt. at lower dose than his home dose. HTN -Continue home meds Code: full Prophylaxis: none Family: none at bedside Disposition: likely home in 1-2 days <Sukhdeep Rodriguez - Last Filed: 04/25/18 09:56> (1) Hypertension Code(s): I10 - ESSENTIAL (PRIMARY) HYPERTENSION Status: Acute (2) Coumadin toxicity Code(s): T45.511A - POISONING BY ANTICOAGULANTS, ACCIDENTAL, INIT Status: Acute (3) Hematuria Code(s): R31.9 - HEMATURIA, UNSPECIFIED Status: Acute (4) Adenocarcinoma Code(s): C80.1 - MALIGNANT (PRIMARY) NEOPLASM, UNSPECIFIED Status: Acute (5) Factor 5 Leiden mutation, heterozygous Code(s): D68.51 - ACTIVATED PROTEIN C RESISTANCE Status: Acute (6) S/P right hemicolectomy Code(s): Z90.49 - ACQUIRED ABSENCE OF OTHER SPECIFIED PARTS OF DIGESTIVE TRACT Status: Acute <Johana Palm - Last Filed: 04/25/18 15:39> Attending Addendum - Attending Addendum Date/Time: 04/25/18 5963 I personally evaluated the patient and discussed the management with Dr. Rodriguez. I agree with the History, Examination, Assessment and Plan documented above with any addition or exceptions noted below. INR is now subtherapeutic. Restarting coumadin. UA indicates UTI, starting IV rocephin. <Johana Palm - Last Filed: 04/25/18 15:39>
[2018-04-25] MEDS: Furosemide 40 MG TAB PO SCH (08:44)
[2018-04-25] MEDS: Potassium Chloride 20 MEQ TAB PO SCH (08:44)
[2018-04-25] MEDS: Lisinopril 10 MG TAB PO SCH (08:47)
[2018-04-25] MEDS ORDERED: Warfarin Sodium 5 MG TAB PO SCH (09:00)
--- NOTE | 2018-04-25 09:39 | RAD ---
AP ABDOMEN: History: Recent colectomy. FINDINGS: Supine view of the abdomen obtained. The abdominal gas pattern is nonspecific. Surgical preethi seen in the right abdomen. No evidence of obstruction or dilatation seen. IMPRESSION: Unremarkable post-surgical radiograph abdomen. POS: [facility]
[2018-04-25] MEDS: cefTRIAXone\\ROCEPHIN 1 GM in Sodium Chloride 0.9% 100 ML IVPB SCH (14:30)
[2018-04-26 05:39] LABS: INR-International Normal Ratio 1.2; Prothrombin Time 15.7 SEC (12.0-14.7)
--- NOTE | 2018-04-26 06:33 | PDOC.FM ---
- Subjective Subjective: Pt. reports he is doing well this morning. Denies hematuria. He does report some suprapubic tenderness. - Objective MAR Reviewed: Yes Vital Signs & Weight: Vital Signs (12 hours) Temp Pulse Resp BP Pulse Ox 04/25/18 20:00 98.2 F 91 16 106/66 96 Weight Admit Weight 136.078 kg Weight 136.078 kg I&O: 04/24/18 04/25/18 04/26/18 06:59 06:59 06:59 Intake Total 580 1300 Balance 580 1300 Result Diagrams: 04/25/18 04:47 04/25/18 04:47 <Sukhdeep Rodriguez - Last Filed: 04/26/18 09:13> - Objective Vital Signs & Weight: Vital Signs (12 hours) Temp Pulse Resp BP BP Pulse Ox 04/26/18 11:25 98.4 F 88 18 116/76 93 L 04/26/18 08:49 115/79 04/26/18 08:00 98.5 F 84 18 115/79 92 L Weight Admit Weight 136.078 kg Weight 136.078 kg I&O: 04/25/18 04/26/18 04/27/18 06:59 06:59 06:59 Intake Total 580 1300 Balance 580 1300 Result Diagrams: 04/25/18 04:47 04/25/18 04:47 <Johana Palm - Last Filed: 04/26/18 16:23> Phys Exam - Physical Examination Constitutional: NAD HEENT: moist MMs Neck: no JVD Respiratory: no wheezing, clear to auscultation bilateral Cardiovascular: RRR, no significant murmur Gastrointestinal: soft, no distention, positive bowel sounds Suprapubic tenderness, no rebound tenderness Musculoskeletal: pulses present, edema present Neurological: normal sensation, moves all 4 limbs Psychiatric: A&O x 3 <Sukhdeep Rodriguez - Last Filed: 04/26/18 09:13> Dx/Plan (1) Coumadin toxicity Code(s): T45.511A - POISONING BY ANTICOAGULANTS, ACCIDENTAL, INIT Status: Acute (2) Hematuria Code(s): R31.9 - HEMATURIA, UNSPECIFIED Status: Acute (3) Colonic mass Code(s): K63.9 - DISEASE OF INTESTINE, UNSPECIFIED Status: Acute (4) Factor 5 Leiden mutation, heterozygous Code(s): D68.51 - ACTIVATED PROTEIN C RESISTANCE Status: Acute - Plan Plan: This is a 62 yo male with a PMH of factor V leiden deficiency, HTN, colon cancer s/p colectomy Hematuria -Pt. had supratherapeutic INR, secondary to coumadin toxicity, on admission with the presence of hematuria. CT adbomen a month ago shows cysts bilaterally on kidneys. INR this morning after vitamin K was 1.3. UA yesterday was positive for LE and WBCs and therefore we started pt. on Rocephin 1 gram. We are pending urine culture. We are going to sent pt. home on xarelto. Colon cancer s/p colectomy -Aware, no signs of GI bleeding. Incision is clean and wound vac is in place. Due to pt's new abdominal pain, we are obtaining a KUB looking for dilated bowel or free air. That KUB was negative for any acute process Factor V leiden deficiency -After discussing with PCP, we are going to start pt. on xarelto due to his poor follow up. Pt. has BCBS and should have it covered. HTN -Continue home meds Code: full Prophylaxis: none Family: none at bedside Disposition: likely home in 1-2 days <Sukhdeep Rodriguez - Last Filed: 04/26/18 09:13> (1) Hypertension Code(s): I10 - ESSENTIAL (PRIMARY) HYPERTENSION Status: Acute (2) Coumadin toxicity Code(s): T45.511A - POISONING BY ANTICOAGULANTS, ACCIDENTAL, INIT Status: Acute (3) Hematuria Code(s): R31.9 - HEMATURIA, UNSPECIFIED Status: Acute (4) Adenocarcinoma Code(s): C80.1 - MALIGNANT (PRIMARY) NEOPLASM, UNSPECIFIED Status: Acute (5) Factor 5 Leiden mutation, heterozygous Code(s): D68.51 - ACTIVATED PROTEIN C RESISTANCE Status: Acute (6) S/P right hemicolectomy Code(s): Z90.49 - ACQUIRED ABSENCE OF OTHER SPECIFIED PARTS OF DIGESTIVE TRACT Status: Acute <Johana Palm - Last Filed: 04/26/18 16:23> Attending Addendum - Attending Addendum Date/Time: 04/26/18 0622 I personally evaluated the patient and discussed the management with Dr. Rodriguez. I agree with the History, Examination, Assessment and Plan documented above with any addition or exceptions noted below. Pt denied abdominal pain for me this morning. Will transition from coumadin to xarelto. Pt will likely d/c home and f/u with Dr. Montoya. Stressed importance of following up with PCP. <Johana Palm - Last Filed: 04/26/18 16:23>
[2018-04-26] MEDS: Potassium Chloride 20 MEQ TAB PO SCH (08:49)
[2018-04-26] MEDS: Lisinopril 10 MG TAB PO SCH (08:49)
[2018-04-26] MEDS: Furosemide 40 MG TAB PO SCH (08:50)
[2018-04-26] MEDS ORDERED: Rivaroxaban 10 MG TAB PO SCH (09:00)
[2018-04-26] MEDS: cefTRIAXone\\ROCEPHIN 1 GM in Sodium Chloride 0.9% 100 ML IVPB SCH (11:18)
[2018-04-26 15:17] VITALS: BP 116/76; TEMP 98.4
--- NOTE | 2018-04-27 03:00 | DIS-2 ---
ADMITTING ATTENDING: Johana Palm M.D. DISCHARGE ATTENDING: Johana Palm M.D. RESIDENT: Sukhdeep Rodriguez D.O. CONSULTATIONS: None. PROCEDURES: One view KUB abdomen showing unremarkable surgical radiographic abdomen. PRIMARY DIAGNOSES: Urinary tract infection, warfarin supratherapeutic levels. SECONDARY DIAGNOSES: History of colon cancer, status post colectomy; hypertension; osteoarthritis; b ronchitis; deep venous thrombosis; peripheral vascular disease; history of factor V Leiden deficiency . DISCHARGE MEDICATIONS: 1. Furosemide 40 mg p.o. daily. 2. Lisinopril 10 mg p.o. daily. 3. Potassium 40 mg p.o. daily. 4. Tylenol 650 mg p.o. q.4 hours p.r.n. pain. 5. [place] 10 one p.o. q.6 hours p.r.n. pain. 6. Protonix 40 mg p.o. b.i.d. 7. Xarelto 10 mg p.o. daily. DISCONTINUED MEDICATIONS: Warfarin 7.5 mg p.o. daily, 3.75 mg p.o. Friday and . HISTORY OF PRESENT ILLNESS AND HOSPITAL COURSE: This is a 62-year-old male, who presented with a chi ef complaint of hematuria. It was found that his INR was too high to calculate. The patient was giv en vitamin K and fresh frozen plasma in the ER. We trended the INR down to 1.3 at which point we sta rted patient back on warfarin. The patient also had suprapubic tenderness. UA was inconclusive agai nst UTI. Therefore, the patient was started on Rocephin for 3-day course. During the hospital stay, I discussed with the patient and patient's case with Dr. Montoya, patient's PCP. I agreed the patie nt should be put on Xarelto at time of discharge and warfarin should be discontinued. DISPOSITION: Stable. DISCHARGE INSTRUCTIONS: 1. Location: Home. 2. Diet: Heart healthy. 3. Activity: As tolerated. 4. Followup: Follow up with Dr. Montoya this week.
== END 2018-04-26 16:33 | disposition home or self-care (01) | DRG 813 ==
LOC: ERS 22:04 → T4-B 04-24 02:16
PROVIDERS: ADMIT Family Medicine; ATTEND Family Medicine
PROC: 30233K1 Transfusion of Nonautologous Frozen Plasma into Peripheral Vein, Percutaneous Approach (ICD-10-PCS; principal; 2018-04-24)
DX: D68.32 Hemorrhagic disorder due to extrinsic circulating anticoagulants (principal); D68.51 Activated protein C resistance; N39.0 Urinary tract infection, site not specified; R31.0 Gross hematuria; T45.515A Adverse effect of anticoagulants, initial encounter; E87.6 Hypokalemia; I10 Essential (primary) hypertension; I73.9 Peripheral vascular disease, unspecified; M19.90 Unspecified osteoarthritis, unspecified site; E66.01 Morbid (severe) obesity due to excess calories; Z87.891 Personal history of nicotine dependence; Z68.39 Body mass index [BMI] 39.0-39.9, adult; Z90.49 Acquired absence of other specified parts of digestive tract; Z86.718 Personal history of other venous thrombosis and embolism; Z85.038 Personal history of other malignant neoplasm of large intestine
CPT/HCPCS: 36415; 36430; 74018; 80048; 81001; 83735; 84100; 85025; 85610; 85730; 86850; 86900; 86901; 87086; A4216; J0696; J3430; J7050; P9059

== ENCOUNTER 2018-05-08 19:25 | Inpatient (IN) | payer BC ==
--- NOTE | 2018-05-08 22:14 | RAD ---
KUB AND UPRIGHT PA CHEST: 05/08/18 HISTORY: Abdominal pain, vomiting. The bowel gas pattern shows air in both small and large bowel without signs of obstruction. Slight lo ss of some of the small bowel fold pattern and some of the bowel loops in the right lower quadrant. I f there is any suspicion of small bowel abnormality, then CT may be helpful in further assessment. No free air demonstrated. There appear to be some surgical chain type sutures in the right mid abdomen. PA CHEST: Heart size and mediastinum are within normal limits. The lungs are clear of any infiltrates. IMPRESSION: No definite acute findings. POS: [facility]
[2018-05-08] MEDS: Potassium Chloride 40 MEQ in Lactated Ringer's 1,000 ML IV SCH (23:18)
[2018-05-08 23:42] VITALS: BMI 37.1
[2018-05-09] MEDS: Potassium Chloride 40 MEQ in Lactated Ringer's 1,000 ML IV SCH (06:39)
[2018-05-09] MEDS ORDERED: hydrALAZINE 20 MG/ML VIAL SLOW IVP PRN (14:01)
[2018-05-09] MEDS ORDERED: Ondansetron ODT 4 MG TAB PO PRN (14:01)
[2018-05-09 14:36] LABS: INR-International Normal Ratio 3.3; Prothrombin Time 33.3 SEC (12.0-14.7)
[2018-05-09] MEDS: Potassium Chloride 40 MEQ in Sodium Chloride 0.45% 1,000 ML IV SCH ×2 (14:45→23:56)
--- NOTE | 2018-05-09 15:11 | HP ---
HISTORY OF PRESENT ILLNESS: Eric Jerez is a 62-year-old male patient, who lives in [place], saw Dr. Stout in the past. 03/21/2018, EGD noting a large hiatal hernia, distal esophagitis, normal duo denum, suggesting followup EGD in 8 weeks to document healing for a large ulcer, thought NSAID relate d. Subsequent, 03/25/2018, Dr. Blanchard performed a colonoscopy due to melena and anemia, finding a mas s, and subsequently, Dr. Louise, 03/27/2018, performed open right colectomy and cholecystectomy for T4 [id number] stage 3C colon cancer. RO status. Dr. Armando consulted and the patient was to see Dr. Armando o n , but felt too dizzy to see him. Patient states that since his operation, he has had probl ems with dizziness. He feels this at all times, even when in bed. He has seen [facility] without help or relief from his stopped up right ear and dizziness. He presented t [facility] Emergency Room last night with these complaints and a CT scan of his head was obtained and was normal. This morning, he had abdominal x-rays that are unremarkable. Patient was having some n ausea. Laboratories obtained and were essentially unremarkable. White count 7 and hemoglobin 12. P otassium was low at 2.5, sodium 135, BUN 12, creatinine 1.39. Patient was thought dehydrated. He wa s admitted for further evaluation. INR was not checked on this admission. ALLERGIES: None. TOBACCO: None. ALCOHOL: None. MEDICATIONS: Lisinopril, warfarin, furosemide. PAST MEDICAL HISTORY: 1. Factor V Leiden mutation, on anticoagulation. 2. Colon cancer, stage/status as noted above. He was to follow up with Oncology, Dr. Armando, but he has missed that appointment, because of these problems. 3. Hypertension. 4. Chronic dizziness. 5. Hypokalemia. PAST SURGICAL HISTORY: Recent open right colectomy, cholecystectomy, hernia repair in the past, hist ory of cholecystectomy. PHYSICAL EXAMINATION: GENERAL: Patient is in bed in no apparent distress. VITAL SIGNS: 6 feet 1, 281 pounds, 37 BMI, 97 degrees, 73, 122/67. HEAD, EARS, EYES, NOSE, AND THROAT: Unremarkable. LUNGS: Clear to auscultation. CARDIAC: Regular rate and rhythm without murmur, rub, or gallop. ABDOMEN: Soft. A well-healed midline scar. No hernias. EXTREMITIES: Unremarkable. Patient is obese. LABORATORY DATA: As noted above. ASSESSMENT AND PLAN: 1. Dizziness since his operation. He feels like he has a stopped up right ear. This has been a chr onic problem for him. He has seen multiple physicians without help. This is probably what brought h im into the hospital. We will obtain ENT consultation. 2. History of gastric ulcer, possibly related to non-steroidal antiinflammatory drugs, and with his vomiting, he complains at the time that he eats. We will ask Gastroenterology to see him. Dr. Keanu arriaza has seen him in the past as well as Dr. Blanchard. 3. Colon cancer. Oncology followup as an outpatient. 4. Dehydration. Rehydrate. 6. Hypokalemia. Replace and followup labs.
[2018-05-09] MEDS ORDERED: ISOVUE-370 76%-LOCM 1 ML ONE (15:13)
[2018-05-09] MEDS ORDERED: Iopamidol 370 76% 50 ML VIAL FS ONE (15:13)
--- NOTE | 2018-05-09 17:36 | CT ---
CT ABDOMEN AND PELVIS PERFORMED WITH INTRAVENOUS CONTRAST ENHANCEMENT: HISTORY: Postop nausea and vomiting. The patient had the gallbladder and part of the colon removed. Unable t o eat. Vomits when he eats. COMPARISON: CT examination from 03/25/2018, which was before the surgery. FINDINGS: ABDOMEN: The lung bases show some chronic change. The liver shows suggestion of some fatty change. The spleen and pancreas regions are unremarkable. The gallbladder has been removed. The right and left adrenal glands are normal in appearance. Hypodensity involving the right kidney i s statistically most likely a cyst. An exophytic hypodensity of the left kidney is also probably a c yst. There is no significant periaortic or mesenteric adenopathy. There is postop right hemicolectomy change. There is wall thickening involving the area of the ileoc olic anastomosis. There are some air outpouchings along this area, which appear to be contained and are probably just related to postop change. There is some narrowing to the anastomosis. I do not se e any signs of leak, and contrast is seen to pass through the anastomosis, without evidence of small bowel dilatation. There is no free fluid. PELVIS: Slightly numerous inguinal nodes are incidentally seen. No pelvic lymphadenopathy or mass. IMPRESSION: 1. Postoperative cholecystectomy change. 2. Postoperative right hemicolectomy with some wall thickening at the ileocolic anastomotic but no s igns for leak or obstruction, as discussed above. POS: [facility]
[2018-05-09] MEDS: Famotidine 20 MG TAB PO SCH (21:17)
[2018-05-09] MEDS: Meclizine HCl 25 MG TAB PO SCH (21:17)
[2018-05-10] MEDS: Meclizine HCl 25 MG TAB PO SCH ×3 (05:38→21:08)
[2018-05-10 06:32] LABS: INR-International Normal Ratio 3.2; Prothrombin Time 32.8 SEC (12.0-14.7)
[2018-05-10 06:40] LABS: Anion Gap 11 mmol/L (10-20); BUN (Urea Nitrogen) 8 mg/dL (8.4-25.7); Calc. Creatinine Clearance 127 mL/min (70-130); Carbon Dioxide 28 mmol/L (23-31); Chloride 99 mmol/L (98-107); Estimated GFR-MDRD 69; Glucose 98 mg/dL (80-115); Potassium 3.6 mmol/L (3.5-5.1); Sodium 134 mmol/L (136-145)
--- NOTE | 2018-05-10 07:57 | PRG ---
DATE OF SERVICE: 05/10/2018 SUBJECTIVE: Eric Jerez is doing a little better today, feels somewhat better. ENT will see him to y Friday or Friday. OBJECTIVE: VITAL SIGNS: Temperature 97.3 degrees, 69, 123/77. LUNGS: Clear to auscultation. CARDIAC: Regular rate and rhythm without murmur or gallop. ABDOMEN: Soft, nontender. LABORATORY DATA: INR 3.3 yesterday. PT 33. Patient is tolerating his diet. ordered a gastric emptying scan. He has a regular diet. Over all, the patient is doing better. His CT scan of the abdomen and pelvis performed yesterday was norm al. There is no evidence of obstruction. We will await his gastric emptying study and repeat EGD fo r gastric ulcer healing. ENT will see him for his dizziness.
[2018-05-10] MEDS: Potassium Chloride 40 MEQ in Sodium Chloride 0.45% 1,000 ML IV SCH ×2 (08:43→10:26)
[2018-05-10] MEDS: Famotidine 20 MG TAB PO SCH ×2 (08:44→21:08)
--- NOTE | 2018-05-10 15:26 | CON ---
DATE OF CONSULTATION: 05/10/2018 CHIEF COMPLAINT: I am seeing Mr. Jerez in consultation at the request of Dr. Corado for evaluation an d treatment of ear problems. HISTORY OF PRESENT ILLNESS: The patient is a 62-year-old man, who gives a 1-week history of dizzines s. When I asked him to describe his dizziness, he states that it feels like the room is spinning a l ittle bit in a clockwise or counterclockwise fashion, but it only really occurs when he is up walking around, after he has been sitting down. He denies any significant exacerbation with sitting in bed. He denies any issues with exacerbation when he lays down in bed. He does have a longstanding histo ry, 12 years or so, of hearing loss and ear problems. He has been evaluated multiple times and has n ever had any major treatment. He has never been recommended that he have hearing aids. He feels lik e his ears are really stuffy and feels like it is worse here in [facility] versus when he lived in [place]. He denies any otorrhea or otalgia. He denies other ear, nose, or throat concerns. PAST MEDICAL HISTORY: Hypertension, factor V deficiency. PAST SURGICAL HISTORY: He denies any ear, nose, and throat surgery. SOCIAL HISTORY: Former smoker user. ALLERGIES: He has allergies to CORTISONE CREAM, which causes a rash. REVIEW OF SYSTEMS: No recent fevers or chills. He denies any nasal congestion or postnasal drainage of any significance. Again, he does have the ear stuffiness, but no ear pain or drainage. He denie s sore throat or hoarseness or difficulty breathing like choking episodes. Respiratory: He denies s hortness of breath or productive cough or hemoptysis. Cardiovascular: He does have the lightheadedn ess. He denies any chest pain or palpitations. Dermatologic: He denies any nonhealing rashes or ch anging skin lesions. Neurologic: He does have the dizziness, but he denies any seizure activity, we akness, or numbness of extremities. PHYSICAL EXAMINATION: GENERAL: The patient is a healthy-appearing man in no distress that is resting comfortably in a debra r in the hospital. HEENT: Head is normocephalic. The parotid and submandibular glands are smooth. There is normal fac ial tone. External ears and nose show no scars, lesions, or masses. Eyes: Extraocular movements ar e intact. Pupils equal, round, and reactive to light. Ear canals are clear bilaterally. The tympan ic membranes are intact and clear with no evidence of effusions or retraction pockets. Rhinoscopy sh ows no purulent discharge. Septum is caudally midline. Mucosa is pink and moist. Oral cavity, lips are in good condition. He is edentulous superiorly and nearly edentulous inferiorly with some carisa s and poor teeth. The floor of mouth, oral, tongue, hard and soft palate, and buccal mucosa are all normal in appearance. Oropharynx reveals pink, moist mucosa with minimal postnasal drainage. There is no erythema or exudates. NECK: There is no mass or thyromegaly. The trachea is midline. LYMPHATIC: No cervical lymphadenopathy. NEUROLOGIC: Cranial nerves III-XII are intact. Gait is steady when he transfers from the chair to t he bed without any exacerbation of his vertigo. RESPIRATORY: Lungs are clear to auscultation bilaterally. HEART: Regular rate and rhythm. ASSESSMENT AND PLAN: 1. Ear pressure. This could be nothing more than eustachian tube dysfunction. It could also be hea ring loss that is making him feel like there is a pressure. I have recommended that he follow up as an outpatient for a formal audiogram whether it was with me or with a referral from his primary care provider to another ear, nose, and throat doctor. 2. Dizziness. This most likely is related to orthostatic hypotension. However, I cannot rule out a mild case of labyrinthitis. It does not sound like a benign positional vertigo or no other signific ant otologic etiology. I have recommended that he continue to improve with his reason for some of hi s other medical issues and follow up if the dizziness persists.
[2018-05-10] MEDS ORDERED: Phytonadione 10 MG/ML AMP SC SCH (17:30)
[2018-05-11] MEDS: Potassium Chloride 40 MEQ in Sodium Chloride 0.45% 1,000 ML IV SCH ×3 (01:21→13:51)
--- NOTE | 2018-05-11 01:36 | CON ---
DATE OF CONSULTATION: 05/10/2018 REASON FOR CONSULTATION: Nausea, vomiting, and abdominal pain. CONSULTING PHYSICIAN: Dr. Michele Corado. HISTORY OF PRESENT ILLNESS: The patient is a 62-year-old male with past medical history of factor V Leiden, hypertension, hypokalemia, chronic dizziness, and colon cancer, status post resection present ing with complaints of nausea, vomiting, and abdominal pain. The patient recently underwent colonic resection for a colon cancer diagnosed in 02/2018. He adds that since the surgery, he would have abdelrahman sea and vomiting within 2 hours after eating that would occur about once daily. When characterizing the timing of these things, he states that one meal would be completely asymptomatic, whereas the nex t meal he would have the onset of nausea approximately 20-30 minutes after he ate, which was then cul minate in vomiting within 10-15 minutes afterwards. Once he would vomit, he would have complete symp pino relief afterwards at which point usually the next meal was normal again followed by an abnormal m eal. This increased nausea and vomiting would also be accompanied by increased midepigastric abdomin al pain that would be intermittent, nonradiating, and reaches severity approximately 4-5/10. The abd ominal pain was worse with nausea and vomiting, but better after having actually vomited; however, at this time, during the course of this hospitalization, he states today that he was able to tolerate a pproximately 3 meals without increased nausea and vomiting. Currently, he denies any nausea, vomitin g, fevers, chills, abdominal pain, dysphagia, odynophagia, or GI bleeding. Of note, patient was evaluated in 02/2018 when he had an EGD on 03/21/2018 which showed a large hiata l hernia as well as a large gastric antral ulceration. REVIEW OF SYSTEMS: A ten-category review of systems was obtained with all responses negative except for the pertinent positives as listed in the HPI. PAST MEDICAL HISTORY: As per HPI. PAST SURGICAL HISTORY: Open right colectomy, cholecystectomy, hernia repair. FAMILY HISTORY: Denies any GI malignancies. SOCIAL HISTORY: Denies any tobacco, alcohol, or illicit drug use. OUTPATIENT MEDICATIONS: Lisinopril, warfarin, and furosemide. ALLERGIES: No known drug allergies. PHYSICAL EXAMINATION: VITAL SIGNS: Temperature 97.9, pulse 67, blood pressure 121/76, respiratory rate 18, satting 96% on room air. GENERAL: Patient is lying in bed in no acute distress. Alert and oriented x4. HEENT: Normocephalic, atraumatic. NECK: Supple. No scleral icterus noted. CARDIOVASCULAR: Regular rate and rhythm with no discernible murmurs, gallops, or rubs. LUNGS: Clear to auscultation bilaterally with no discernible wheezes or rales. ABDOMEN: Normoactive bowel sounds, soft, nondistended. Tenderness to palpation in midline located a t the incision site for his recent colonic resection. EXTREMITIES: No cyanosis, clubbing, or edema. LABORATORY DATA: CBC with a white blood cell count of 7.9, hemoglobin 12.5, hematocrit 40.5, platele ts 413. INR 3.3. Chemistry with a sodium of 135, potassium 2.5, chloride 94, CO2 of 23, BUN 12, cre atinine 1.39, glucose 133. AST 49, ALT 37, alkaline phosphatase 87, total bilirubin 0.7. IMAGING DATA: No current GI imaging is available for review. ASSESSMENT AND PLAN: The patient is a 62-year-old male with a past medical history of factor V Leide n, hypertension, hypokalemia, and recent diagnosis of colonic malignancy status post right hemicolect eulalia and cholecystectomy, presenting with complaints of nausea, vomiting, and intermittent abdominal p ain. Nausea and vomiting. The patient states that since having the surgery in 02/2018, he has been having increased nausea and vomiting episodes occurring within 2 hours after he eats most meals. He states that the normal pattern would follow a meal, where he will be completely asymptomatic, that would th en be followed by meal where he would have the onset of these symptoms within 2 hours after ingestion of solids or liquids. With the onset of this nausea and vomiting, the nausea would build to the poi nt where he would vomit, but then he would have complete resolution of his symptoms afterwards. At t his point in time, the pattern of his symptoms seem to be related to either gastroparesis or possible gastric outlet obstruction given the fact that his symptoms would occur within 2 hours of ingestion of food and would build to a point where he would vomit and have complete resolution of his symptoms afterwards. However, given his recent EGD in 02/2018 showing the presence of a small gastric antral ulceration. Peptic ulcer disease is still within the differential (the patient will need an EGD at s ometime in the near future). The patient is currently reluctant to proceed directly with endoscopic management at this point in time, but would rather proceed with more conservative management. RECOMMENDATIONS: 1. Would continue to monitor the patient's nausea and vomiting with aggressive antiemetic control. 2. Continue H2 kallie for possible acid reflux contributing to current symptoms. 3. I will order a gastric emptying study to confirm diagnosis of possible gastroparesis. 4. If the gastric emptying study is negative, I would then consider endoscopic evaluation for the or igin of his nausea and vomiting. We will continue to follow. Please call with any questions.
[2018-05-11] MEDS: Meclizine HCl 25 MG TAB PO SCH ×3 (05:19→21:01)
[2018-05-11 05:44] LABS: #Basophils 0.1 thou/uL (0.0-0.2); #Eosinphils 0.3 thou/uL (0.0-0.7); #Lymphocytes 1.5 thou/uL (1.20-3.40); #Monocytes 0.5 thou/uL (0.11-0.59); #Neutrophils 3.4 thou/uL (1.40-6.50); %Basophils 1.4 % (0.0-1.0); %Eosinophils 4.6 % (0.0-10.0); %Lymphocytes 25.6 % (21.0-51.0); %Monocytes 9.2 % (0.0-10.0); %Neutrophils 59.1 % (42.0-75.0); Hemoglobin 10.6 g/dL (14.0-18.0); Mean Corpuscular HGB CONC 31.1 g/dL (32.0-36.0); Mean Corpuscular Hemoglobin 28.3 pg (27.0-31.0); Mean Corpuscular Volume 90.9 fL (78.0-98.0); Mean Platelet Volume 7.2 fL (7.4-10.4); Platelet Count 321 thou/uL (130-400); RBC Distribution Width 16.9 % (11.5-14.5); Red Blood Cell (RBC) Count 3.76 mill/uL (4.70-6.10); White Blood Cell (WBC) Count 5.7 thou/uL (4.8-10.8)
[2018-05-11 06:03] LABS: ALT (SGPT) 40 U/L (8-55); AST (SGOT) 41 U/L (5-34); Albumin 3.3 g/dL (3.4-4.8); Alkaline Phosphatase 76 U/L (40-150); Anion Gap 11 mmol/L (10-20); BUN (Urea Nitrogen) 7 mg/dL (8.4-25.7); Bilirubin, Total 0.5 mg/dL (0.2-1.2); Calc. Creatinine Clearance 117 mL/min (70-130); Carbon Dioxide 28 mmol/L (23-31); Chloride 101 mmol/L (98-107); Estimated GFR-MDRD 63; Globulin 3.3 g/dL (2.4-3.5); Glucose 111 mg/dL (80-115); Potassium 3.8 mmol/L (3.5-5.1); Protein, Total 6.6 g/dL (5.8-8.1); Sodium 136 mmol/L (136-145)
[2018-05-11 06:06] LABS: INR-International Normal Ratio 1.2; Prothrombin Time 15.7 SEC (12.0-14.7)
[2018-05-11] MEDS: Famotidine 20 MG TAB PO SCH (10:12)
--- NOTE | 2018-05-11 13:20 | PRG ---
DATE OF SERVICE: 05/11/2018 Mr. Jerez had his HIDA scan, results are pending. He noted intermittently, he will have pain after ea ting or nausea and throw up, usually within 30-40 minutes. Other times he can eat without problems. He did have a very large 1.5 cm ulcer in the duodenum and when he was here when his cancer was found . It seems that he has been on a PPI and at home was on no medications for this. The ulcer was just found in 03/21/2018, 8 weeks would be the end of April. Presently he is without complaints. He s tates his bowel movements fine. PHYSICAL EXAMINATION: VITAL SIGNS: Temperature 97, pulse 60, blood pressure 103/66. ABDOMEN: Soft, nontender. There is no rebound. There is no guarding. ASSESSMENT: History of gastric ulcer. He is not on therapy for this. RECOMMENDATIONS: Stop the H2 kallie and start PPI IV.
--- NOTE | 2018-05-11 14:41 | NM ---
NUCLEAR MEDICINE GASTRIC EMPTYING STUDY: Date: 05/11/18 HISTORY: Nausea and vomiting. COMPARISON: CT abdomen and pelvis 2 days prior. FINDINGS: The exam was performed after oral administration of 2.1 mCi technetium-99m sulfur colloid. The T-1/2 emptying is 218 minutes. At 4 hours, there is only approximately 59% emptying. IMPRESSION: Delayed gastric emptying. POS: TONIE
[2018-05-11] MEDS: Pantoprazole 40 MG VIAL IVP SCH (20:58)
--- NOTE | 2018-05-11 22:52 | PRG ---
DATE OF SERVICE: 05/11/2018 SUBJECTIVE: Mr. Eric Jerez is doing well today. He still complains of dizziness. This is mostly oc curring at rest and does not seem to have orthostatic. He is tolerating his diet. He has had bowel movements. He has passed flatus. Dr. Yoel Ramesh saw him last night and the ear exam is normal. He have vestibulitis. He was encouraged to follow up with Dr. Moody' office. OBJECTIVE: VITAL SIGNS: 97.6 degrees, . LUNGS: Clear to auscultation. CARDIAC: Regular rate and rhythm without murmur, gallop. ABDOMEN: Soft, nontender. Bowel sounds present, has bowel movements. LABORATORY: White count 5.7, hemoglobin 10.6. Basic metabolic profile normal. Gastric emptying erick dy today 05/11/2018 was delayed after [address] Stout has seen him in followup and started him on a PPI IV. Plan is for future upper endoscopy. My recommendation would be that he be discharged home in the next 24 hours if he is tolerating his diet. He will follow up with Gastroenterology and ENT as an outpatient. His PT/INR normal, such laura t if he needed an upper endoscopy, he could have one tomorrow.
[2018-05-12] MEDS: Meclizine HCl 25 MG TAB PO SCH ×2 (05:01→13:21)
[2018-05-12] MEDS: Pantoprazole 40 MG VIAL IVP SCH (09:05)
--- NOTE | 2018-05-12 11:27 | PRG ---
DATE OF SERVICE: 05/12/2018 HISTORY OF PRESENT ILLNESS: Eric Jerez is doing well today. He is tolerating his diet. He is havin g bowel movements. His nausea is diminished, although occasionally occurs. He still complains of di zziness at rest and with ambulation and does not seem to be orthostatic. PHYSICAL EXAMINATION: VITAL SIGNS: Temperature 97.8 degrees, 67, 143/85. LABORATORY: No laboratories this morning. ENT has seen him and he has some degree of vestibulitis probably accounting for his dizziness and abdelrahman sea. He has been on meclizine, which has not seemed to help this much. Follow up with ENT, Dr. Yoel Moody as an outpatient might be helpful to treat his vestibulitis in the office. Dr. Stout has se en him in followup for a large gastric ulcer. The patient's anticoagulation has been held. His PT/I NR are normal. He could have an upper endoscopy this hospitalization. However, if it is too early t his may have to be done later as an outpatient. Dr. Stout has placed him on a parenteral PPI. LUNGS: Clear to auscultation. CARDIAC: Regular rate and rhythm without murmur or gallop. ABDOMEN: Soft, nontender. He has consumed all of his regular breakfast this morning. ASSESSMENT AND PLAN: 1. Abnormal gastric nuclear emptying study. Treatment for Dr. Stout, GI. 2. Duodenal ulcer. Followup endoscopy probably as an outpatient later, treatment for Dr. Stout. 3. Chronic anticoagulation, resume if Dr. Stout does not plan upper endoscopy this hospitalization. 4. Vestibulitis probably accounting for his dizziness and his nausea. Follow up with ENT as an outp atient. 5. Status post cholecystectomy and colon resection. Follow up with Dr. Louise. Dr. Louise will retur n tomorrow. The patient may be able to go home later today pending Dr. Stout evaluation at noon. I f Dr. Stout is not playing upper endoscopy then would restart his anticoagulation at his routine dos e and follow up his PT/INR as an outpatient.
[2018-05-12 13:25] VITALS: TEMP 97.9
[2018-05-12 15:53] VITALS: BP 128/80
--- NOTE | 2018-05-13 01:26 | DIS ---
DATE OF ADMISSION: 05/08/2018 DATE OF DISCHARGE: 05/12/2018 DISCHARGE DIAGNOSES: Vestibulitis; dizziness; history of large gastric ulcer on proton pump inhibito rs, follow up with Dr. Stout recommended in the next 4 weeks; chronic anticoagulation for factor V m utation; recent history six weeks ago, T4a N2b M0 stage 3, right colon cancer resection and cholecyst ectomy; dehydration; hypertension; chronic dizziness. PROCEDURES THIS HOSPITALIZATION: 1. Consultation Dr. Yoel Ramesh, ENT. No external auditory canal obstruction or foreign body. Recom mendation to follow up Dr. Ramesh's office for evaluation of chronic dizziness, vestibulitis, discharg ed home with meclizine 25 t.i.d. 2. Consult[address] with Dr. Stout, anticoagulation held. Upper endoscopy not performed. We will be p erformed later time as an outpatient. Continue proton pump inhibitors twice a day for 2 weeks and th en once a day thereafter. Prescriptions given. 3. CAT scan of abdomen and pelvis from the emergency room. Patient due for followup with Oncology f or his colon cancer, hypokalemia treated this hospitalization. HISTORY: A 62-year-old male patient was seen by Dr. Louise for right colectomy, cholecystectomy for c olon stage cancer as above. He was to see Dr. Armando oncology, but missed that visit, he felt too diz zy to see him. He has had problems. He states he is with dizziness and nausea since his colon resec tion. He was seen in the emergency room. CAT scan was obtained, was essentially normal, postoperati ve changes from right colon cholecystectomy. White count 7, hemoglobin 12, potassium low at 2.5. Pa tient was hydrated. Potassium replaced. Coumadin held. He had a history of duodenal ulcer, had not been taking PPIs. GI was consulted. We will follow up in a week or two. Upper endoscopy planned a nd the future colonoscopy planned. Continue Coumadin for factor V Leiden deficiency. Follow up with Dr. Yoel Ramesh for chronic dizziness present since his colon resection. Follow up with Dr. Dani nelson r their schedule.
== END 2018-05-12 17:20 | disposition home or self-care (01) | DRG 149 ==
LOC: ERS 19:25 → SURG B 20:30
PROVIDERS: ADMIT Specialist; ATTEND Specialist
DX: H83.09 Labyrinthitis, unspecified ear (principal); D68.51 Activated protein C resistance; C18.9 Malignant neoplasm of colon, unspecified; K25.9 Gastric ulcer, unspecified as acute or chronic, without hemorrhage or perforation; I10 Essential (primary) hypertension; E87.6 Hypokalemia; E86.0 Dehydration
CPT/HCPCS: 36415; 74022; 74177; 78264; 80048; 80053; 85025; 85610; 96365; 96366; A9541; C9113; J3430; J3480; J7120

== ENCOUNTER 2018-05-19 15:46 | Outpatient (CLI) | payer BC ==
[2018-05-19 16:55] LABS: PTT 29.5 SEC (22.9-36.1); Prothrombin Time 12.8 SEC (12.0-14.7)
[2018-05-19 17:02] LABS: #Basophils 0.1 thou/uL (0.0-0.2); #Eosinphils 0.1 thou/uL (0.0-0.7); #Lymphocytes 0.9 thou/uL (1.20-3.40); #Monocytes 0.4 thou/uL (0.11-0.59); #Neutrophils 4.1 thou/uL (1.40-6.50); %Basophils 1.4 % (0.0-1.0); %Eosinophils 2.7 % (0.0-10.0); %Lymphocytes 15.3 % (21.0-51.0); %Monocytes 7.2 % (0.0-10.0); %Neutrophils 73.4 % (42.0-75.0); Mean Corpuscular HGB CONC 30.2 g/dL (32.0-36.0); Mean Corpuscular Hemoglobin 27.8 pg (27.0-31.0); Mean Corpuscular Volume 92.1 fL (78.0-98.0); Mean Platelet Volume 7.3 fL (7.4-10.4); Platelet Count 282 thou/uL (130-400); RBC Distribution Width 17.4 % (11.5-14.5); Red Blood Cell (RBC) Count 3.97 mill/uL (4.70-6.10); White Blood Cell (WBC) Count 5.6 thou/uL (4.8-10.8)
[2018-05-19 17:12] LABS: ALT (SGPT) 12 U/L (8-55); AST (SGOT) 9 U/L (5-34); Albumin 3.5 g/dL (3.4-4.8); Alkaline Phosphatase 89 U/L (40-150); Anion Gap 11 mmol/L (10-20); BUN (Urea Nitrogen) 9 mg/dL (8.4-25.7); Bilirubin, Total 0.3 mg/dL (0.2-1.2); Calc. Creatinine Clearance 0 mL/min (70-130); Carbon Dioxide 26 mmol/L (23-31); Chloride 105 mmol/L (98-107); Estimated GFR-MDRD 71; Globulin 3.3 g/dL (2.4-3.5); Glucose 119 mg/dL (80-115); Potassium 4.1 mmol/L (3.5-5.1); Protein, Total 6.8 g/dL (5.8-8.1); Sodium 138 mmol/L (136-145)
== END 2018-05-19 15:47 | disposition home or self-care (01) ==
LOC: LABBT 15:46
PROVIDERS: ATTEND Surgery
DX: Z01.818 Encounter for other preprocedural examination (principal); C18.9 Malignant neoplasm of colon, unspecified
CPT/HCPCS: 80053; 85025; 85610; 85730; 93005; 93010

== ENCOUNTER 2018-05-20 07:46 | Day surgery (SDC) | payer BC ==
[2018-05-19 16:02] VITALS: BMI 38.2
[2018-05-20] MEDS ORDERED: CEFAZOLIN/Water 2 GM/20 ML SYRINGE ONE (08:40)
[2018-05-20] MEDS ORDERED: Bupivacaine/Epinephrine 0.25% 30 ML VIAL ONE (09:13)
[2018-05-20] MEDS ORDERED: Midazolam HCl 2 mg/2 ml Vial ONE (09:21)
[2018-05-20] MEDS ORDERED: Fentanyl 100 MCG/2 ML VIAL ONE ×2 (09:21→10:41)
[2018-05-20] MEDS ORDERED: Propofol 500 MG/50 ML VIAL ONE (09:21)
--- NOTE | 2018-05-20 11:10 | OP ---
DATE OF PROCEDURE: 05/20/2018 PREOPERATIVE DIAGNOSIS: Advanced colon cancer. SURGEON: Tez Louise M.D. PROCEDURE PERFORMED: MediPort placement. INDICATIONS: A 62-year-old male who is going to require chemotherapy for colon cancer, needed access . FINDINGS: Could not really find good backflow of venous blood on the left. I was able to get into t he right subclavian vein, placement confirmed by fluoroscopy. PROCEDURE: After informed consent was obtained, the patient was taken to the operating room and give n total intravenous anesthesia, placed in the supine position. His chest was prepped and draped in u sual fashion. Local anesthesia infiltrated subcutaneously and deep. An attempt made on the left. S everal sticks, but no good backflow of venous blood. I moved to the right, was able to get good back flow of venous blood. J-wire threaded easily. Fluoroscopy was used, showed good placement of the wi re in the superior vena cava. Skin and subcu was anesthetized with local anesthesia. Transverse antonio st wall incision was performed. The subcu divided sharply. The tunneling device used to connect the two incisions. The catheter brought through the tunnel. It was connected to the MediPort. The sys tem was flushed with heparinized saline. The MediPort was secured to the chest wall with interrupted 2-0 Prolene suture. Then the catheter cut to size. The peel-away introducer inserted over the wire . The wire was removed. The catheter inserted through the peel-away introducer and the peel-away in troducer removed. Fluoroscopy again performed showed good placement in the superior vena cava. The system accessed with a Castillo needle. Good backflow of venous blood, flushed with heparinized saline. The subcutaneous reapproximated with interrupted 3-0 Vicryl. Skin closed with interrupted 4-0 Rapi de. Dermabond applied. The patient tolerated the procedure well and was transferred to recovery in good condition. Sponge and needle count verified correct x2.
--- NOTE | 2018-05-20 12:11 | RAD ---
SINGLE VIEW OF THE CHEST: Comparison: 02-18-18 History: Mediport insertion. FINDINGS: Single view of the chest shows an enlarged but stable cardiomediastinal silhouette. There is a right subclavian Mediport with its tip in the superior vena cava. No pneumothorax is seen. IMPRESSION: Status post Mediport placement without evidence of complication. POS: TPC
[2018-05-20] MEDS ORDERED: PHENYLEPHRINE-NS 100 MCG/ML 10 ML SYRINGE ONE (14:32)
[2018-05-20] MEDS ORDERED: Ondansetron HCl/PF 4 MG/2 ML Vial ONE (14:32)
[2018-05-20] MEDS ORDERED: Metoclopramide HCl 10 MG/2 ML VIAL ONE (14:32)
[2018-05-20] MEDS ORDERED: PROPOFOL 200 MG/20 ML VIAL ONE (14:32)
== END 2018-05-20 15:15 | disposition home or self-care (01) ==
LOC: SDC 07:46
PROVIDERS: ATTEND Surgery
PROC: 02HV33Z Insertion of Infusion Device into Superior Vena Cava, Percutaneous Approach (ICD-10-PCS; principal; 2018-05-20)
DX: C18.9 Malignant neoplasm of colon, unspecified (principal); D64.9 Anemia, unspecified; Z79.01 Long term (current) use of anticoagulants; Z79.899 Other long term (current) drug therapy; Z87.891 Personal history of nicotine dependence
CPT/HCPCS: 71045; 96374; C1788; J1642; J2250; J2405; J2704; J2765; J3010

== ENCOUNTER 2018-05-22 14:10 | Inpatient (IN) | payer BC ==
--- NOTE | 2018-05-22 16:26 | ULT ---
LEFT LOWER EXTREMITY VENOUS ULTRASOUND: Comparison: None. History: Left lower extremity swelling and pain. Technique: Multiplanar grayscale and color doppler images were obtained in a left lower extremity rula ous ultrasound. Spectral analysis of the doppler waveforms were performed. FINDINGS: There is noncompression of the left popliteal vein. There is incompletely compression of the left sup erficial femoral vein. Little flow is seen in these areas. These findings are consistent with DVTs in the superficial femoral vein and popliteal vein on the left. The left common femoral vein and profun da femoral vein show no evidence of DVT and demonstrate normal compression. The venous structures dis jade to the knee show no evidence of thrombus. There is an anechoic cyst posterior to the knee measuring 5.6 x 1.8 cm in size which represents a Beatrice er's cyst. IMPRESSION: 1. DVT seen in the left superficial femoral vein and popliteal vein. 2. Alan's cyst. POS: TONIE
[2018-05-22] MEDS ORDERED: Enoxaparin Sodium 100 MG/ML SYRINGE ONE (17:34)
[2018-05-22] MEDS ORDERED: Enoxaparin Sodium 40 MG/0.4 ML SYRINGE ONE (17:34)
--- NOTE | 2018-05-22 18:09 | PDOC.FPRHP ---
- History of Present Illness Chief Complaint: left leg pain History of Present Illness: 62 yo M comes from OSH for left leg DVT. He noticed left leg onset of dull, aching pain and swelling behind his left knee this morning. Worse with walking. No redness, fever, recent trauma. He has a PMH significant for colon CA, factor 5 leiden, and recent chemo port placement. He has been on coumadin but due to port placement last on 05/20, discontinued it 5 days prior and resumed it on . ED Course: therapeutic lovenox - Allergies/Adverse Reactions Allergies Allergy/AdvReac Type Severity Reaction Status Date / Time cortisone Allergy Mild Rash Verified 05/23/18 00:57 flu vaccine Allergy Uncoded 05/23/18 00:57 - Home Medications Medication Instructions Recorded Confirmed Type Lisinopril 10 mg PO DAILY 02/18/18 05/23/18 History Warfarin Sodium 7.5 mg PO ASDIR 05/08/18 05/23/18 History Potassium Chloride 40 meq PO DAILY 05/23/18 05/23/18 History - History PMHx: History of colon CA s/p colectomy 8 weeks ago, HTN, OA, bronchitis, DVT, PVD, Factor 5 leiden deficiency PSHx: colectomy (04/14), cholecystecomy, dequervain tenosynovitis surgical procedure, pilonidal cyst removal FHx:aunt with FVL Social: denies etoh, drugs, - Review of Systems General: denies: fever/chills, weight/appetite/sleep changes Eyes: denies: vision changes ENT: denies: nasal congestion, rhinorrhea Respiratory: denies: congestion, shortness of breath Cardiovascular: denies: chest pain, palpitation Gastrointestinal: denies: nausea, vomiting, diarrhea, constipation Skin: denies: rashes, lesions, jaundice Musculoskeletal: reports: pain (pain and tenderness behind left knee), tenderness, swelling Neurological: denies: syncope, seizure Psychological: denies: anxiety, depression - Vital signs BP: [142/102] HR: [98] RR: [20] Tmax: [98.6] Pox: [94]% on [RA] Wt: [] - Physical Exam Constitutional: NAD, awake, alert and oriented HEENT: PERRLA, conjunctiva clear Neck: supple, FROM Chest: no-tender to palpation Heart: RRR, normal S1/S2, no murmurs/rubs/gallops Lungs: CTAB, no respiratory distress, good air movement, no rales/rhonchi Abdomen: soft, other (tender to palpation along midline sugical excision from laparotomy. no erythema or drainage) Musculoskeletal: normal tone -Musculoskeletal: tender to palpation behind left posterior knee at popliteal fossa. palapable cord. no erythema. BLE skin changes, chronic, likley stasis dermatitis, no signs of infection, erythema, warmth Skin: no rash/lesions, good turgor Heme/Lymphatic: no unusual bruising or bleeding, no purpura Psychiatric: normal mood and affect, good judgment and insight FMR H&P: Results - Labs Result Diagrams: 05/23/18 03:56 05/23/18 03:56 FMR H&P: A/P - Problem List (1) Dvt femoral (deep venous thrombosis) Current Visit: Yes Status: Acute Code(s): I82.419 - ACUTE EMBOLISM AND THROMBOSIS OF UNSPECIFIED FEMORAL VEIN (2) Subtherapeutic international normalized ratio (INR) Current Visit: Yes Status: Acute Code(s): R79.1 - ABNORMAL COAGULATION PROFILE (3) History of colon cancer Current Visit: Yes Status: Acute Code(s): Z85.038 - PERSONAL HISTORY OF MALIGNANT NEOPLASM OF LARGE INTESTINE (4) Anemia Current Visit: No Status: Acute Code(s): D64.9 - ANEMIA, UNSPECIFIED (5) Factor 5 Leiden mutation, heterozygous Current Visit: No Status: Acute Code(s): D68.51 - ACTIVATED PROTEIN C RESISTANCE (6) Hypertension Current Visit: No Status: Acute Code(s): I10 - ESSENTIAL (PRIMARY) HYPERTENSION (7) S/P right hemicolectomy Current Visit: No Status: Acute Code(s): Z90.49 - ACQUIRED ABSENCE OF OTHER SPECIFIED PARTS OF DIGESTIVE TRACT - Plan 62 yo M with PMH colon CA, hx of DVT, F5L deficiency here with DVT of left extremity 1. DVT 2/2 subtherapeutic INR -U/S: DVT in left superficial femoral and popliteal vv. -provoked DVT from stopping coumadin for procedure. also with hypercoaguable RF : colon CA, F5L def., obesity -will continue lovenox to coumadin bridge to achieve therapeutic INR at 2-3 -check INR in AM and anti-Xa to ensure adequate therapeutic dosing given body habitus -no SOB, non-hypoxic on RA, low concern for PE at this point -will admit to medical obs 2. Subtherapeutic INR -2/2 to discontinuing coumadin for port placement procedure -see #1 3. HTN -continue home meds 4. Factor 5 Leidein -see #1 5. OA -continue home meds 6. Colon CA s/p resection -port placed on 05/20; scheduled for outpt chemo next week 7. Normocytic anemia -could be from malignancy -non-tachycardic,asx -continue to monitor with daily CBCs dispo: <[address] zuniga FMR H&P: Upper Level - Pertinent history 62M transferred from outside ED for concern for DVT. Patient developed LLE pain and tenderness one day ago, centered behind his left knee. Pain is described as dull and achy but exquisitely tender to the touch. It is exacerbated with walking or any other flexion and extension of the LLE. Hx significant for factor V Leiden deficiency on chronic coumadin. He underwent right hemicolectomy in February of this year for stage III colon CA. He also had a port placed for chemotherapy on Friday and was off of his Coumadin for five days prior to the procedure. He resumed his Coumadin in the post-op period. ED: Lovenox 1 mg/kg - Pertinent findings Vitals: 131/81 mmHg 92 bpm 20 breaths/m 98.1F 95% on RA Gen: A&Ox3 CV: RRR; no murmurs Pulm: CTA-B Abd: distended, soft, nonTTP Extremities: severe bilateral lower extremity edema 2/2 chronic venous stasis; Skin: no erythema to left popliteal fossa but painful with palpation Venous doppler: left superficial femoral and popliteal DVT H.4 INR: 1.2 - Plan Date/Time: 05/22/181807 1. Proximal LLE DVT: popliteal vein involved, confirmed with US. Continue lovenox 1 mg/kg with [id number] level. Start warfarin and continue bridging until INR is therapeutic. Patient had a DVT 25 years ago and was diagnosed with Factor V Leiden def and started on chronic coumadin at that time. Hemodynamically stable with no concern for PE at this time. 2. HTN: continue home medications 3. Factor V Leiden: lovenox bridging to coumadin 4. Stage III Colon Ca s/p hemicolectomy and port placement: surgical site shows no s/s of infection. F/u OP for chemo 5. Normocytic anemia: likely 2/2 #4. Currently at his baseline. I, Martell Escobedo, have evaluated this patient and agree with findings/plan as outlined by materials intern resident. Pertinent changes/additions are listed here. Attending Addendum - Attending Addendum Date/Time: 05/23/1887 I personally evaluated the patient and discussed the management with Dr. Tarango/ Gergg. I agree with the History, Examination, Assessment and Plan documented above with any addition or exceptions noted below. Here for recurrent DVT with subtherapeutic INR due to need for previous procedure.Will start Lovenox, continue coumadin. Check anti-Xa level to ensure weight based dosing appropriate.
[2018-05-22] MEDS ORDERED: Ondansetron PF 4 MG/2 ML Vial IVP PRN (21:52)
[2018-05-22] MEDS ORDERED: Ondansetron ODT 4 MG TAB SL PRN (21:52)
[2018-05-22] MEDS ORDERED: Warfarin Sodium 7.5 MG TAB PO SCH (23:30)
[2018-05-23 04:56] LABS: INR-International Normal Ratio 1.2; PTT 38.5 SEC (22.9-36.1); Prothrombin Time 14.8 SEC (12.0-14.7)
[2018-05-23 05:03] LABS: #Eosinphils 0.2 thou/uL (0.0-0.7); #Lymphocytes 0.7 thou/uL (1.20-3.40); #Monocytes 0.4 thou/uL (0.11-0.59); %Basophils 0.6 % (0.0-1.0); %Eosinophils 4.9 % (0.0-10.0); %Lymphocytes 15.8 % (21.0-51.0); %Monocytes 8.6 % (0.0-10.0); %Neutrophils 70.1 % (42.0-75.0); Hemoglobin 8.9 g/dL (14.0-18.0); Mean Corpuscular HGB CONC 31.2 g/dL (32.0-36.0); Mean Corpuscular Hemoglobin 28.6 pg (27.0-31.0); Mean Corpuscular Volume 91.5 fL (78.0-98.0); Platelet Count 226 thou/uL (130-400); RBC Distribution Width 17.3 % (11.5-14.5); Red Blood Cell (RBC) Count 3.11 mill/uL (4.70-6.10); White Blood Cell (WBC) Count 4.3 thou/uL (4.8-10.8)
[2018-05-23 05:14] LABS: ALT (SGPT) Less than 7 U/L (8-55); AST (SGOT) 9 U/L (5-34); Albumin 2.8 g/dL (3.4-4.8); Alkaline Phosphatase 68 U/L (40-150); Anion Gap 11 mmol/L (10-20); BUN (Urea Nitrogen) 9 mg/dL (8.4-25.7); Bilirubin, Total 0.4 mg/dL (0.2-1.2); Calc. Creatinine Clearance 165 mL/min (70-130); Calcium 8.7 mg/dL (7.8-10.44); Carbon Dioxide 26 mmol/L (23-31); Chloride 105 mmol/L (98-107); Estimated GFR-MDRD 85; Globulin 3.2 g/dL (2.4-3.5); Glucose 114 mg/dL (80-115); Potassium 4.1 mmol/L (3.5-5.1); Sodium 138 mmol/L (136-145)
--- NOTE | 2018-05-23 05:42 | PDOC.FM ---
- Subjective Subjective: Doing well. Reports increased pain in left leg. Denies chest pain, shortness of breath. No other concerns. - Objective MAR Reviewed: Yes Vital Signs & Weight: Vital Signs (12 hours) Temp Pulse Resp BP Pulse Ox 05/23/18 03:55 96 18 119/51 L 93 L 05/22/18 21:37 98.1 F 104 H 18 145/73 H 94 L Weight Weight 139.117 kg Result Diagrams: 05/23/18 03:56 05/23/18 03:56 <Michaela Guillen - Last Filed: 05/23/18 10:33> - Objective Vital Signs & Weight: Vital Signs (12 hours) Temp Pulse Resp BP Pulse Ox 05/23/18 07:12 98.6 F 96 16 108/55 L 93 L 05/23/18 03:55 96 18 119/51 L 93 L Weight Weight 139.117 kg Result Diagrams: 05/23/18 03:56 05/23/18 03:56 <Armando Miguel - Last Filed: 05/23/18 10:42> Phys Exam - Physical Examination Constitutional: NAD Neck: supple Respiratory: no wheezing, clear to auscultation bilateral Cardiovascular: RRR, no significant murmur Gastrointestinal: soft, non-tender, positive bowel sounds Musculoskeletal: pulses present Psychiatric: normal affect, A&O x 3 Skin: cap refill <2 seconds <Michaela Guillen - Last Filed: 05/23/18 10:33> Dx/Plan (1) Dvt femoral (deep venous thrombosis) Code(s): I82.419 - ACUTE EMBOLISM AND THROMBOSIS OF UNSPECIFIED FEMORAL VEIN Status: Acute (2) History of colon cancer Code(s): Z85.038 - PERSONAL HISTORY OF MALIGNANT NEOPLASM OF LARGE INTESTINE Status: Acute (3) Subtherapeutic international normalized ratio (INR) Code(s): R79.1 - ABNORMAL COAGULATION PROFILE Status: Acute (4) Acute kidney injury Code(s): N17.9 - ACUTE KIDNEY FAILURE, UNSPECIFIED Status: Acute (5) Adenocarcinoma Code(s): C80.1 - MALIGNANT (PRIMARY) NEOPLASM, UNSPECIFIED Status: Acute (6) Anemia Code(s): D64.9 - ANEMIA, UNSPECIFIED Status: Acute - Plan Plan: DVT 2/2 subtherapeutic INR - U/S: DVT in left superficial femoral & popliteal vv. - Provoked DVT from stopping coumadin for procedure. - Hypercoaguable in setting of colon CA, F5L def., obesity - Continue lovenox to coumadin bridge to achieve therapeutic INR at 2-3 - INR 1.2, Anti-Xa < 0.1 - Therapeutic range for lovenox is 0.6-1, although lab was drawn 14hrs after initial dose (dose given at 1330 05/22) and it is recommended to draw 4 hrs after dose. Will recheck level at 1200 which is 4hrs after his 140mg dose this AM at 800 and adjust accordingly. Subtherapeutic INR - 2/2 to discontinuing Coumadin for port placement procedure - Will manage as above HTN - Continue home meds Factor 5 Leiden def/mut OA - Continue home meds Colon CA s/p resection - Port placed on 05/20 for chemo - Scheduled for outpt chemo next week Normocytic anemia - Likely 2/2 to malignancy - Continue to monitor with daily CBCs Code Status: DVT ppx: Therapeutic lovenox/warfarin bridge <Michaela Guillen - Last Filed: 05/23/18 10:33> (1) Dvt femoral (deep venous thrombosis) Code(s): I82.419 - ACUTE EMBOLISM AND THROMBOSIS OF UNSPECIFIED FEMORAL VEIN Status: Acute (2) Subtherapeutic international normalized ratio (INR) Code(s): R79.1 - ABNORMAL COAGULATION PROFILE Status: Acute (3) History of colon cancer Code(s): Z85.038 - PERSONAL HISTORY OF MALIGNANT NEOPLASM OF LARGE INTESTINE Status: Acute (4) Anemia Code(s): D64.9 - ANEMIA, UNSPECIFIED Status: Acute (5) Factor 5 Leiden mutation, heterozygous Code(s): D68.51 - ACTIVATED PROTEIN C RESISTANCE Status: Acute (6) Hypertension Code(s): I10 - ESSENTIAL (PRIMARY) HYPERTENSION Status: Acute (7) S/P right hemicolectomy Code(s): Z90.49 - ACQUIRED ABSENCE OF OTHER SPECIFIED PARTS OF DIGESTIVE TRACT Status: Acute <Armando Miguel - Last Filed: 05/23/18 10:42> Attending Addendum - Attending Addendum Date/Time: 05/23/18 1042 I personally evaluated the patient and discussed the management with Dr. Guillen. I agree with the History, Examination, Assessment and Plan documented above with any addition or exceptions noted below. Adjust Lovenox dosing if necessary based on repeat Xa levels. Continue bridge back to therapeutic warfarin. <Armando Miguel - Last Filed: 05/23/18 10:42>
[2018-05-23] MEDS: Acetaminophen 325 MG TAB PO PRN ×3 (07:07→17:09)
[2018-05-23 07:18] LABS: Heparin Anti 10a (LMWH) Less than 0.1 IU/mL
[2018-05-23] MEDS: Enoxaparin Sodium 100 MG/ML SYRINGE SC SCH ×2 (08:30→21:37)
[2018-05-23] MEDS: Lisinopril 10 MG TAB PO SCH (08:30)
[2018-05-23] MEDS: Enoxaparin Sodium 40 MG/0.4 ML SYRINGE SC SCH ×2 (08:30→21:38)
[2018-05-23] MEDS: Warfarin Sodium 7.5 MG TAB PO SCH (17:09)
[2018-05-24] MEDS: Acetaminophen 325 MG TAB PO PRN ×2 (03:39→13:52)
[2018-05-24 05:52] LABS: #Eosinphils 0.2 thou/uL (0.0-0.7); #Lymphocytes 0.8 thou/uL (1.20-3.40); #Monocytes 0.3 thou/uL (0.11-0.59); #Neutrophils 2.6 thou/uL (1.40-6.50); %Basophils 0.5 % (0.0-1.0); %Eosinophils 5.2 % (0.0-10.0); %Lymphocytes 21.1 % (21.0-51.0); %Monocytes 7.1 % (0.0-10.0); %Neutrophils 66.1 % (42.0-75.0); Hemoglobin 8.9 g/dL (14.0-18.0); Mean Corpuscular HGB CONC 30.6 g/dL (32.0-36.0); Mean Corpuscular Volume 91.3 fL (78.0-98.0); Mean Platelet Volume 6.8 fL (7.4-10.4); Platelet Count 254 thou/uL (130-400); RBC Distribution Width 17.3 % (11.5-14.5); Red Blood Cell (RBC) Count 3.18 mill/uL (4.70-6.10); White Blood Cell (WBC) Count 3.9 thou/uL (4.8-10.8)
--- NOTE | 2018-05-24 06:08 | PDOC.FM ---
- Subjective Subjective: Doing well this morning. Reports improvement in pain. Pain controlled with Tylenol. He is not pleased with the heart healthy diet. Will transition to low Vit K diet, he was agreeable to this. He has an appt tomorrow for evaluation of his port that will be used for chemotherapy. His first treatment is this Friday. He is concerned that he will not be able to make these appts since he will be in the hospital. He is going to call to see if they will come see him while he is in the hospital. We will try to contact them tomorrow as well. - Objective MAR Reviewed: Yes Vital Signs & Weight: Vital Signs (12 hours) Temp Pulse Resp BP BP Pulse Ox 05/24/18 03:39 93 18 116/59 L 93 L 05/23/18 23:34 98.7 F 85 24 H 137/77 93 L 05/23/18 19:51 98.1 F 77 21 H 116/60 95 Weight Weight 139.117 kg I&O: 05/22/18 05/23/18 05/24/18 06:59 06:59 06:59 Intake Total 900 Balance 900 Result Diagrams: 05/24/18 05:24 05/24/18 05:24 <Michaela Guillen - Last Filed: 05/24/18 07:55> - Objective Vital Signs & Weight: Vital Signs (12 hours) Temp Pulse Resp BP BP Pulse Ox 05/24/18 08:31 136/84 05/24/18 07:05 98.2 F 87 20 136/84 93 L 05/24/18 03:39 93 18 116/59 L 93 L 05/23/18 23:34 98.7 F 85 24 H 137/77 93 L Weight Weight 139.117 kg I&O: 05/23/18 05/24/18 05/25/18 06:59 06:59 06:59 Intake Total 900 Balance 900 Result Diagrams: 05/24/18 05:24 05/24/18 05:24 <Armando Miguel - Last Filed: 05/24/18 10:06> Phys Exam - Physical Examination Constitutional: NAD Neck: supple Respiratory: no wheezing, clear to auscultation bilateral Cardiovascular: RRR, no significant murmur Gastrointestinal: soft, non-tender, positive bowel sounds Musculoskeletal: edema present Neurological: moves all 4 limbs Psychiatric: normal affect, A&O x 3 <Guillen,Michaela - Last Filed: 05/24/18 07:55> Dx/Plan (1) Dvt femoral (deep venous thrombosis) Code(s): I82.419 - ACUTE EMBOLISM AND THROMBOSIS OF UNSPECIFIED FEMORAL VEIN Status: Acute (2) History of colon cancer Code(s): Z85.038 - PERSONAL HISTORY OF MALIGNANT NEOPLASM OF LARGE INTESTINE Status: Acute (3) Subtherapeutic international normalized ratio (INR) Code(s): R79.1 - ABNORMAL COAGULATION PROFILE Status: Acute (4) Acute kidney injury Code(s): N17.9 - ACUTE KIDNEY FAILURE, UNSPECIFIED Status: Acute (5) Adenocarcinoma Code(s): C80.1 - MALIGNANT (PRIMARY) NEOPLASM, UNSPECIFIED Status: Acute (6) Anemia Code(s): D64.9 - ANEMIA, UNSPECIFIED Status: Acute - Plan Plan: DVT 2/2 subtherapeutic INR - U/S: DVT in left superficial femoral & popliteal vv. - Provoked DVT from stopping coumadin for procedure. - Hypercoaguable in setting of colon CA, F5L def., obesity - Continue lovenox to coumadin bridge to achieve therapeutic INR at 2-3 - INR 1.3, Anti-Xa .39 yesterday 4hr after morning dose, 0.01 under therapeutic range. continue to monitor 4hr post injection daily - Will place pt on low Vit K diet Subtherapeutic INR - 2/2 to discontinuing Coumadin for port placement procedure - Will manage as above HTN - Continue home meds Factor 5 Leiden def/mut OA - Continue home meds Colon CA s/p resection - Port placed on 05/20 for chemo - Scheduled for outpt chemo Friday - Will need to contact pts clinic to arrange for them to see him in the hospital Fri & Normocytic anemia - Likely 2/2 to malignancy - Continue to monitor with daily CBCs Code Status: DVT ppx: Therapeutic lovenox/warfarin bridge <GuillenMichaela - Last Filed: 05/24/18 07:55> (1) Dvt femoral (deep venous thrombosis) Code(s): I82.419 - ACUTE EMBOLISM AND THROMBOSIS OF UNSPECIFIED FEMORAL VEIN Status: Acute (2) Subtherapeutic international normalized ratio (INR) Code(s): R79.1 - ABNORMAL COAGULATION PROFILE Status: Acute (3) History of colon cancer Code(s): Z85.038 - PERSONAL HISTORY OF MALIGNANT NEOPLASM OF LARGE INTESTINE Status: Acute (4) Anemia Code(s): D64.9 - ANEMIA, UNSPECIFIED Status: Acute (5) Factor 5 Leiden mutation, heterozygous Code(s): D68.51 - ACTIVATED PROTEIN C RESISTANCE Status: Acute (6) Hypertension Code(s): I10 - ESSENTIAL (PRIMARY) HYPERTENSION Status: Acute (7) S/P right hemicolectomy Code(s): Z90.49 - ACQUIRED ABSENCE OF OTHER SPECIFIED PARTS OF DIGESTIVE TRACT Status: Acute <Armando Miguel - Last Filed: 05/24/18 10:06> Attending Addendum - Attending Addendum Date/Time: 05/24/18 1005 I personally evaluated the patient and discussed the management with Dr. Guillen. I agree with the History, Examination, Assessment and Plan documented above with any addition or exceptions noted below. Patient stable. INR subtherapuetic. Anti-Xa levels appropriate. Continue bridge to therapeutic coumadin. Will hold on extraneous lab draws unless clinical course changes. <Armando Miguel - Last Filed: 05/24/18 10:06>
[2018-05-24 06:16] LABS: ALT (SGPT) Less than 7 U/L (8-55); AST (SGOT) 10 U/L (5-34); Albumin 2.8 g/dL (3.4-4.8); Alkaline Phosphatase 67 U/L (40-150); Anion Gap 9 mmol/L (10-20); BUN (Urea Nitrogen) 9 mg/dL (8.4-25.7); Bilirubin, Total 0.2 mg/dL (0.2-1.2); Calc. Creatinine Clearance 181 mL/min (70-130); Calcium 8.6 mg/dL (7.8-10.44); Carbon Dioxide 26 mmol/L (23-31); Chloride 106 mmol/L (98-107); Estimated GFR-MDRD Greater than 90; Globulin 3.1 g/dL (2.4-3.5); Glucose 113 mg/dL (80-115); Potassium 3.8 mmol/L (3.5-5.1); Protein, Total 5.9 g/dL (5.8-8.1); Sodium 137 mmol/L (136-145)
[2018-05-24 06:17] LABS: Heparin Anti 10a (LMWH) 0.57 IU/mL
[2018-05-24 06:30] LABS: INR-International Normal Ratio 1.3; Prothrombin Time 16.7 SEC (12.0-14.7)
[2018-05-24 06:31] LABS: PTT 57.7 SEC (22.9-36.1)
[2018-05-24] MEDS: Enoxaparin Sodium 40 MG/0.4 ML SYRINGE SC SCH ×2 (08:31→20:07)
[2018-05-24] MEDS: Enoxaparin Sodium 100 MG/ML SYRINGE SC SCH ×2 (08:31→20:08)
[2018-05-24] MEDS: Lisinopril 10 MG TAB PO SCH (08:31)
[2018-05-24] MEDS: Warfarin Sodium 7.5 MG TAB PO SCH (17:33)
[2018-05-25] MEDS: Acetaminophen 325 MG TAB PO PRN (00:17)
[2018-05-25 05:48] LABS: INR-International Normal Ratio 1.6; Prothrombin Time 18.7 SEC (12.0-14.7)
[2018-05-25 05:49] LABS: PTT 66.1 SEC (22.9-36.1)
--- NOTE | 2018-05-25 06:40 | PDOC.FM ---
- Subjective Subjective: No complaints pt is feeling well today. No questions or concerns. - Objective MAR Reviewed: Yes Vital Signs & Weight: Vital Signs (12 hours) Temp Pulse Resp BP Pulse Ox 05/25/18 04:50 97.9 F 81 20 123/60 92 L 05/24/18 19:09 98.4 F 88 24 H 139/59 L 93 L Weight Weight 139.117 kg I&O: 05/23/18 05/24/18 05/25/18 06:59 06:59 06:59 Intake Total 900 Balance 900 Result Diagrams: 05/24/18 05:24 05/24/18 05:24 <Michaela Guillen - Last Filed: 05/25/18 08:53> - Objective Vital Signs & Weight: Weight Weight 139.117 kg I&O: 05/25/18 05/26/18 05/27/18 06:59 06:59 06:59 Intake Total 500 Balance 500 Result Diagrams: 05/24/18 05:24 05/24/18 05:24 <Ezequiel Travis - Last Filed: 05/26/18 08:15> Phys Exam - Physical Examination Constitutional: NAD Neck: supple Respiratory: no wheezing, clear to auscultation bilateral Cardiovascular: RRR, no significant murmur Gastrointestinal: soft, non-tender, positive bowel sounds Musculoskeletal: edema present Psychiatric: normal affect, A&O x 3 Skin: cap refill <2 seconds <Michaela Guillen - Last Filed: 05/25/18 08:53> Dx/Plan (1) Dvt femoral (deep venous thrombosis) Code(s): I82.419 - ACUTE EMBOLISM AND THROMBOSIS OF UNSPECIFIED FEMORAL VEIN Status: Acute (2) History of colon cancer Code(s): Z85.038 - PERSONAL HISTORY OF MALIGNANT NEOPLASM OF LARGE INTESTINE Status: Acute (3) Subtherapeutic international normalized ratio (INR) Code(s): R79.1 - ABNORMAL COAGULATION PROFILE Status: Acute (4) Acute kidney injury Code(s): N17.9 - ACUTE KIDNEY FAILURE, UNSPECIFIED Status: Acute (5) Adenocarcinoma Code(s): C80.1 - MALIGNANT (PRIMARY) NEOPLASM, UNSPECIFIED Status: Acute (6) Anemia Code(s): D64.9 - ANEMIA, UNSPECIFIED Status: Acute - Plan Plan: DVT 2/2 subtherapeutic INR - U/S: DVT in left superficial femoral & popliteal vv. - Provoked DVT from stopping coumadin for procedure. - Hypercoaguable in setting of colon CA, F5L def., obesity - Continue lovenox to coumadin bridge to achieve therapeutic INR at 2-3 - Anti-Xa at therapeutic range - INR 1.6 - Diet: low Vit K Subtherapeutic INR - 2/2 to discontinuing Coumadin for port placement procedure - Will manage as above HTN - Continue home meds Factor 5 Leiden def/mut OA - Continue home meds Colon CA s/p resection - Port placed on 05/20 for chemo - Scheduled for outpt chemo Friday - Plan to contact cancer center today to arrange for them to see him in the hospital Fri & Normocytic anemia - Likely 2/2 to malignancy - Continue to monitor with daily CBCs Code Status: DVT ppx: Therapeutic lovenox/warfarin bridge <Michaela Guillen - Last Filed: 05/25/18 08:53> Attending Addendum - Attending Addendum Date/Time: 05/26/1814 I personally evaluated the patient and discussed the management with Dr. Guillen yesterday morning. I agree with the History, Examination, Assessment and Plan documented above with any addition or exceptions noted below. <Ezequiel Travis - Last Filed: 05/26/18 08:15>
[2018-05-25] MEDS: Enoxaparin Sodium 40 MG/0.4 ML SYRINGE SC SCH (09:12)
[2018-05-25] MEDS: Enoxaparin Sodium 100 MG/ML SYRINGE SC SCH (09:12)
[2018-05-25] MEDS: Lisinopril 10 MG TAB PO SCH (09:12)
[2018-05-25 10:39] VITALS: BP 140/81; TEMP 97.7
--- NOTE | 2018-05-26 01:14 | DIS-2 ---
DATE OF ADMISSION: 05/22/2018 DATE OF DISCHARGE: 05/25/2018 RESIDENT: Michaela Guillen, PGY-1. ADMITTING ATTENDING: Armando Miguel MD DISCHARGE ATTENDING: Ezequiel Travis M.D. CONSULTATIONS: None. PROCEDURES: Vascular ultrasound showing DVT seen in the left superficial femoral vein and popliteal vein. Alan's cyst. PRIMARY DIAGNOSES: 1. Deep venous thrombosis secondary to subtherapeutic INR. 2. Subtherapeutic INR. SECONDARY DIAGNOSES: 1. Hypertension. 2. Factor V Leiden deficiency/mutation. 3. Osteoarthritis. 4. Colon cancer, status post resection. 5. Normocytic anemia. DISCHARGE MEDICATIONS: 1. Lisinopril 10 mg daily. 2. Warfarin 7.5 mg on Friday, Friday, Friday, Friday, Friday, Friday. 3. Warfarin 3.75 mg p.o. Friday, . 4. Sodium chloride 40 mEq daily. 5. Xarelto 15 mg b.i.d. until INR greater than 2. DISCONTINUED MEDICATIONS: None. HISTORY OF PRESENT ILLNESS/HOSPITAL COURSE: Mr. Jerez is a 62-year-old male with past medical history of factor V Leiden deficiency/mutation, colon cancer, and left leg Alan's cyst presenting with left leg pain, found to have a DVT on lower extremity venous ultrasound. Patient recently had discontinu ed warfarin 5 days prior to chemo port placement and had resumed warfarin on 05/21/2018, the day afte r the procedure. He was admitted to use Lovenox to bridge until INR was back to therapeutic range. His chronic medical conditions of hypertension, OA were controlled with home medications. He was scheduled for a consult with Cancer Center. He was scheduled to meet with the Cancer Center f or consultation of port on Friday. Cancer Center was notified and [facility]S Carcamo visited him in the [facility] for consultation. Plans to initiate [facility]. DISPOSITION: Stable. DISCHARGE INSTRUCTIONS: 1. Location: Home. 2. Diet: Low vitamin K. 3. Activity: No restrictions. 4. Follow up with Dr. Montoya, PCP within 3 to 7 days. 5. INR daily until INR greater than 2 and Cancer Clinic for initiation of chemo.
[2018-05-26] MEDS ORDERED: Warfarin Sodium 3.75 MG HALF.TAB PO SCH (17:00)
== END 2018-05-25 14:53 | disposition home or self-care (01) | DRG 300 ==
LOC: ERS 14:10 → 2SW 17:02 → OBSVTOIN 17:02 → ONC 05-25 09:47
PROVIDERS: ADMIT Student in an Organized Health Care Education/Training Program; ATTEND Student in an Organized Health Care Education/Training Program
DX: I82.412 Acute embolism and thrombosis of left femoral vein (principal); D68.51 Activated protein C resistance; C18.9 Malignant neoplasm of colon, unspecified; N17.9 Acute kidney failure, unspecified; Z68.41 Body mass index [BMI] 40.0-44.9, adult; M71.22 Synovial cyst of popliteal space [Baker], left knee; I82.432 Acute embolism and thrombosis of left popliteal vein; I10 Essential (primary) hypertension; M19.90 Unspecified osteoarthritis, unspecified site; I73.9 Peripheral vascular disease, unspecified; D64.9 Anemia, unspecified; E66.9 Obesity, unspecified; Z79.01 Long term (current) use of anticoagulants; Z90.49 Acquired absence of other specified parts of digestive tract
CPT/HCPCS: 36415; 71045; 80053; 82248; 82378; 83615; 84100; 84550; 85025; 85520; 85610; 85730; 93005; 93010; 96374; C1788; J1642; J1650; J2250; J2405; J2704; J2765; J3010

== ENCOUNTER 2018-09-07 08:22 | Day surgery (SDC) | payer BC ==
[2018-09-07] MEDS ORDERED: DEXAMETHASONE SOD PHOSPHATE IVPB SCH (08:30)
[2018-09-07] MEDS ORDERED: ONDANSETRON IVPB SCH (08:30)
[2018-09-07] MEDS ORDERED: Leucovorin Calcium 50 MG in Dextrose 5% in Water 50 ML IVPB SCH (08:30)
[2018-09-07] MEDS ORDERED: [UNRECOGNIZED DRUG - OTHER] IVPB SCH (08:30)
[2018-09-07] MEDS ORDERED: DEXTROSE 5% IVPB SCH (09:00)
[2018-09-07] MEDS ORDERED: WATER IVPB SCH (09:00)
[2018-09-07] MEDS ORDERED: FLUOROURACIL IVPB SCH (09:00)
[2018-09-07] MEDS ORDERED: Oxaliplatin 200 MG in Dextrose 5% in Water 500 ML IVPB SCH (09:00)
[2018-09-07] MEDS ORDERED: Sodium Chloride 0.9% 20 ML ONE (09:03)
[2018-09-07 09:42] VITALS: BP 128/78; TEMP 98.5
== END 2018-09-07 15:27 | disposition home or self-care (01) ==
LOC: ONC/OP 08:22
PROVIDERS: ATTEND Internal Medicine Hematology & Oncology
DX: Z51.11 Encounter for antineoplastic chemotherapy (principal); C18.0 Malignant neoplasm of cecum; N18.2 Chronic kidney disease, stage 2 (mild); D50.0 Iron deficiency anemia secondary to blood loss (chronic); D68.51 Activated protein C resistance; Z88.7 Allergy status to serum and vaccine; Z88.8 Allergy status to other drugs, medicaments and biological substances
CPT/HCPCS: 96367; 96375; 96413; 96415; 96416; 96417; J0640; J1100; J2405; J7050; J7070; J9190; J9263

== ENCOUNTER 2018-09-21 00:09 | Day surgery (SDC) | payer BC ==
[2018-09-21] MEDS ORDERED: DEXAMETHASONE SOD PHOSPHATE IVPB SCH (02:30)
[2018-09-21] MEDS ORDERED: FLUOROURACIL IVPB SCH (02:30)
[2018-09-21] MEDS ORDERED: Leucovorin Calcium 50 MG in Dextrose 5% in Water 50 ML IVPB SCH (02:30)
[2018-09-21] MEDS ORDERED: WATER IVPB SCH (02:30)
[2018-09-21] MEDS ORDERED: [UNRECOGNIZED DRUG - OTHER] IVPB SCH (02:30)
[2018-09-21] MEDS ORDERED: Oxaliplatin 200 MG in Dextrose 5% in Water 500 ML IVPB SCH (02:30)
[2018-09-21] MEDS ORDERED: ONDANSETRON IVPB SCH (02:30)
[2018-09-21] MEDS ORDERED: DEXTROSE 5% IVPB SCH (02:30)
[2018-09-21] MEDS ORDERED: Sodium Chloride 0.9% 20 ML ONE (10:31)
[2018-09-21 13:08] VITALS: BP 125/75; TEMP 97.7
== END 2018-09-21 14:30 | disposition home or self-care (01) ==
LOC: ONC/OP 00:09
PROVIDERS: ATTEND Internal Medicine Hematology & Oncology
DX: Z51.11 Encounter for antineoplastic chemotherapy (principal); C18.0 Malignant neoplasm of cecum; D68.51 Activated protein C resistance; D50.0 Iron deficiency anemia secondary to blood loss (chronic); I12.9 Hypertensive chronic kidney disease with stage 1 through stage 4 chronic kidney disease, or unspecified chronic kidney disease; N18.2 Chronic kidney disease, stage 2 (mild); M19.90 Unspecified osteoarthritis, unspecified site; Z90.89 Acquired absence of other organs; Z90.49 Acquired absence of other specified parts of digestive tract; Z87.891 Personal history of nicotine dependence; Z88.8 Allergy status to other drugs, medicaments and biological substances; Z88.7 Allergy status to serum and vaccine; Z79.01 Long term (current) use of anticoagulants; Z79.899 Other long term (current) drug therapy; Z98.890 Other specified postprocedural states
CPT/HCPCS: 85610; 96367; 96375; 96413; 96415; 96417; J0640; J1100; J2405; J7050; J7070; J9190; J9263

== ENCOUNTER 2018-09-24 08:57 | Day surgery (SDC) | payer BC ==
[2018-09-24] MEDS ORDERED: PEGFILGRASTIM-JMDB 6 MG/0.6 ML SYRINGE SQ SCH (11:45)
[2018-09-24 13:14] VITALS: BP 124/67; TEMP 98.2
== END 2018-09-24 13:15 | disposition home or self-care (01) ==
LOC: ONC/OP 08:57
PROVIDERS: ATTEND Internal Medicine Hematology & Oncology
DX: Z12.11 Encounter for screening for malignant neoplasm of colon (principal); C18.0 Malignant neoplasm of cecum; D68.51 Activated protein C resistance; D50.0 Iron deficiency anemia secondary to blood loss (chronic); N18.2 Chronic kidney disease, stage 2 (mild); Z88.7 Allergy status to serum and vaccine; Z88.8 Allergy status to other drugs, medicaments and biological substances
CPT/HCPCS: 96372; Q5108

== ENCOUNTER 2018-10-05 10:44 | Day surgery (SDC) | payer BC ==
[~2018-10-05 10:44] MED LIST: DEXAMETHASONE SOD PHOSPHATE IVPB SCH; DEXTROSE 5% IVPB SCH; FLUOROURACIL IVPB SCH; Leucovorin Calcium 50 MG in Dextrose 5% in Water 50 ML IVPB SCH; ONDANSETRON IVPB SCH; Oxaliplatin 200 MG in Dextrose 5% in Water 500 ML IVPB SCH; WATER IVPB SCH; [UNRECOGNIZED DRUG - OTHER] IVPB SCH
[2018-10-05] MEDS ORDERED: Sodium Chloride 0.9% 20 ML ONE (10:58)
[2018-10-05 13:26] VITALS: BP 105/57; TEMP 98.6
== END 2018-10-05 14:38 | disposition home or self-care (01) ==
LOC: ONC/OP 10:44
PROVIDERS: ATTEND Internal Medicine Hematology & Oncology
DX: Z51.11 Encounter for antineoplastic chemotherapy (principal); C18.0 Malignant neoplasm of cecum; D68.51 Activated protein C resistance; D50.0 Iron deficiency anemia secondary to blood loss (chronic); I12.9 Hypertensive chronic kidney disease with stage 1 through stage 4 chronic kidney disease, or unspecified chronic kidney disease; N18.2 Chronic kidney disease, stage 2 (mild); M19.90 Unspecified osteoarthritis, unspecified site
CPT/HCPCS: 96367; 96375; 96413; 96415; 96417; J0640; J1100; J1642; J2405; J7050; J7070; J9190; J9263